=== PATIENT | female | born 1940 | race Caucasian/White ===

== ENCOUNTER → 2017-05-28 | Outpatient (REF) | payer MEDICARE ==
[2017-05-28 13:30] LABS: BASO % 0.6 % (0.0-1.0); EOS # 0.1 10^3/uL (0.0-0.50); EOS % 1.7 % (0.0-3.0); IMMATURE GRANULOCYTE % 0.4 % (0-0); LYMPH # 1.9 10^3/uL (1.5-4.5); MEAN CORPUSCULAR HGB CONC 33.8 g/dl (32.0-36.5); MEAN CORPUSCULAR VOLUME 91.8 fl (80.0-96.0); MONO # 0.5 10^3/uL (0.0-0.8); MONO % 7.6 % (0.0-5.0); NEUTROPHILS # 4.4 10^3/uL (1.8-7.7); NEUTROPHILS % 62.7 % (36.0-66.0); PLATELET COUNT, AUTOMATED 333 10^3/uL (150-450); RED CELL DISTRIBUTION WIDTH 12.5 % (11.5-14.5); WHITE BLOOD COUNT 7.1 10^3/uL (4.0-10.0)
[2017-05-28 13:31] LABS: ADD MANUAL DIFFER NO; DIFF SLIDE NUMBER 146
[2017-05-28 13:56] LABS: ALBUMIN 4.3 GM/DL (3.2-5.2); ALBUMIN/GLOBULIN RATIO 1.39 (1.00-1.93); ALKALINE PHOSPHATASE 66 U/L (45-117); ALT/SGPT 29 U/L (12-78); ANION GAP 7 MEQ/L (8-16); AST/SGOT 20 U/L (15-37); BILIRUBIN,TOTAL 0.7 MG/DL (0.2-1.0); BLOOD UREA NITROGEN 12 MG/DL (7-18); CALCIUM LEVEL 9.4 MG/DL (8.8-10.2); CARBON DIOXIDE LEVEL 30 MEQ/L (21-32); CHLORIDE LEVEL 97 MEQ/L (98-107); CHOLESTEROL LEVEL 180 MG/DL (<200); CREATININE FOR GFR 0.86 MG/DL (0.55-1.02); GLOMERULAR FILTRATION RATE > 60.0 (>39); GLUCOSE, FASTING 110 MG/DL (83-110); POTASSIUM SERUM 4.5 MEQ/L (3.5-5.1); SODIUM LEVEL 134 MEQ/L (136-145); TOTAL PROTEIN 7.4 GM/DL (6.4-8.2); TRIGLYCERIDES LEVEL 132 MG/DL (<150)
== END ==
LOC: M LABWUC 12:22
PROVIDERS: ATTEND Family Medicine
DX: I10 Essential (primary) hypertension (principal)

== ENCOUNTER 2017-10-03 14:32 | Emergency (ER) | payer MEDICARE ==
[2017-10-03] MEDS: ONDANSETRON 4MG/2ML VIAL (J2405) IV (16:41)
[2017-10-03] MEDS: MORPHINE 2 MG/ML 1ML SYRINGE (J2270) IV (16:42)
[2017-10-03] MEDS: CEPHALEXIN 500 MG CAP PO (18:30)
== END 2017-10-03 19:07 | disposition home or self-care (01) ==
LOC: M ED 14:32
DX: S61.215A Laceration without foreign body of left ring finger without damage to nail, initial encounter (principal); T14.8XXA Other injury of unspecified body region, initial encounter; W00.0XXA Fall on same level due to ice and snow, initial encounter; Y92.481 Parking lot as the place of occurrence of the external cause; I10 Essential (primary) hypertension; J44.9 Chronic obstructive pulmonary disease, unspecified; E78.9 Disorder of lipoprotein metabolism, unspecified; Z88.2 Allergy status to sulfonamides; Z79.899 Other long term (current) drug therapy; Z79.51 Long term (current) use of inhaled steroids
CPT/HCPCS: J2405

== ENCOUNTER 2019-03-18 09:28 | Emergency (ER) | payer MEDICARE, MEDICAID ==
[~2019-03-18] VITALS: Ht 165.1 cm; Wt 70.5 kg
[~2019-03-18 09:28] MED LIST: AMOX875T; CRES10TA; IBUP-1022 PO; KEFL500C17 PO; LISINOP/HCTZ; METO1TAB87; ONDA4TAB5; PROAAER10; SYMBICORT
[2019-03-18] MEDS ORDERED: LOSA50TA5 (09:39)
[2019-03-18 10:05] VITALS: BP 151/59
== END 2019-03-18 10:11 | disposition home or self-care (01) ==
LOC: M ED 09:28
DX: H11.32 Conjunctival hemorrhage, left eye (principal); K59.00 Constipation, unspecified; I10 Essential (primary) hypertension; J43.9 Emphysema, unspecified; Z79.51 Long term (current) use of inhaled steroids; Z79.899 Other long term (current) drug therapy; Z88.2 Allergy status to sulfonamides

== ENCOUNTER 2019-06-21 11:13 | Day surgery (SDC) | payer MEDICAID, MEDICARE ==
[~2019-06-21] VITALS: Ht 162.6 cm; Wt 66.7 kg
[~2019-06-21 11:13] MED LIST changes: +ASPI-264 PO; +BALANCED SALT IRRIGATION SOLUTION 500ML BAG (FOR OR EYE MACHINE) As Ordered ONE; +CEFUROXIME 1MG/0.1ML INTRACAMERAL INJ As Ordered ONE; -CRES10TA; +CRES10TA PO; +DUOVISC (0.50ML VISCOAT/0.55ML PROVISC) OPHTH KIT As Ordered ONE; +LIDOCAINE 0.75%/EPINEPHRINE 0.025% IN BSS 0.8ML SYR INTRACAMERAL--OR ONLY As Ordered ONE; +LOSA50TA5; +LOSA50TA5 PO; +METO1TAB87 PO; +OFLOXACIN 0.3 % (OCUFLOX) OPTH SOL 5ML OS ONE; +PHENYLEPHRINE 2.5% OPHTH SOL 2ML OS ONE; +POVIDONE-IODINE 5% OPHTH PREP SOL 30ML As Ordered ONE; -PROAAER10; +PROAAER10 INH; +PROPARACAINE 0.5% OPHTH SOL 15ML OS ONE; +SYMB16INH INH; +TROPICAMIDE 1% OPHTH SOLN 2ML OS ONE
[2019-06-21] MEDS ORDERED: fentaNYL 100 MCG/2 ML INJECTION (J3010) As Ordered ONE (12:41)
[2019-06-21] MEDS ORDERED: MIDAZOLAM INJ 2 MG/2 ML VIAL (J2250) As Ordered ONE (12:41)
[2019-06-21 14:49] VITALS: BP 135/61
--- NOTE | 2019-06-22 18:59 | RO ---
DATE OF PROCEDURE: 06/21/2019 PREOPERATIVE DIAGNOSIS: 1. Visually significant nuclear sclerotic cataract left eye. POSTOPERATIVE DIAGNOSIS: 1. Visually significant nuclear sclerotic cataract left eye. PROCEDURE: 1. Cataract extraction with use of phacoemulsification and placement of intraocular lens, AU00T0, 20.0 D, left eye. SURGEON: Pino Dietrich DO TRACK SUPERINTENDENT: None. ANESTHESIA: Local with monitored anesthesia care (MAC). COMPLICATIONS: None. POSTOPERATIVE CONDITION: Stable. INDICATIONS FOR SURGERY: 1. Blurred vision affecting patients activities of daily living. DESCRIPTION OF PROCEDURE: The patient was seen in the preoperative area and properly identified. The correct operative eye was identified and marked. The patient received topical anesthetic, antibiotics, and topical dilating drops. The patient was then transferred to the operating room. The correct side was re-identified, and a time-out was performed. The eye was prepped and draped in a sterile fashion. The eyelids were isolated with Tegaderm tape, and the lids were held open with an adjustable speculum. A 1.0 mm paracentesis incision was made. Intraocular preservative-free Shugarcaine was then injected into the anterior chamber. Viscoelastic was then injected into the anterior chamber through the paracentesis. Using a 2.4 mm sharp-tipped keratome, the anterior chamber was entered via a temporal clear cornea incision. A continuous curvilinear capsulorrhexis was created with Utrata forceps. Hydrodissection was performed with balanced salt solution (BSS) on a blunt cannula until the nucleus was able to rotate freely. The crystalline lens was phacoemulsified and aspirated. Irrigation/aspiration was used to remove the cortical material. Cohesive viscoelastic was placed into the capsular bag to deepen it. The implant was placed into the capsular bag and allowed to unfold. Placement was confirmed by visualizing the anterior capsulorrhexis. Irrigation/aspiration was used to remove the viscoelastic. The clear corneal incision was hydrated with BSS on a blunt cannula. The lens was well positioned. The incisions were then tested for leaks and found to be negative. The eye was then palpated for appropriate pressure and adjusted accordingly with BSS. The eyelid speculum was then carefully removed. A shield was placed over the eye. The patient tolerated the procedure well and was discharged to the recovery unit in a stable condition.
== END 2019-06-21 14:49 | disposition home or self-care (01) ==
LOC: M SDC 11:13
PROVIDERS: ATTEND Ophthalmology
DX: H25.12 Age-related nuclear cataract, left eye (principal); I10 Essential (primary) hypertension; J44.9 Chronic obstructive pulmonary disease, unspecified; Z88.2 Allergy status to sulfonamides; Z79.891 Long term (current) use of opiate analgesic; Z79.899 Other long term (current) drug therapy; Z79.82 Long term (current) use of aspirin
CPT/HCPCS: 66984; J2250; J3010; V2632

== ENCOUNTER 2019-07-05 07:58 | Day surgery (SDC) | payer MEDICAID, MEDICARE ==
[~2019-07-05] VITALS: Ht 165.1 cm; Wt 67.1 kg
[~2019-07-05 07:58] MED LIST changes: +OFLOXACIN 0.3 % (OCUFLOX) OPTH SOL 5ML OD ONE; -OFLOXACIN 0.3 % (OCUFLOX) OPTH SOL 5ML OS ONE; +PHENYLEPHRINE 2.5% OPHTH SOL 2ML OD ONE; -PHENYLEPHRINE 2.5% OPHTH SOL 2ML OS ONE; +PROPARACAINE 0.5% OPHTH SOL 15ML OD ONE; -PROPARACAINE 0.5% OPHTH SOL 15ML OS ONE; +TROPICAMIDE 1% OPHTH SOLN 2ML OD ONE; -TROPICAMIDE 1% OPHTH SOLN 2ML OS ONE
[2019-07-05] MEDS ORDERED: MIDAZOLAM INJ 2 MG/2 ML VIAL (J2250) As Ordered ONE (11:11)
[2019-07-05] MEDS ORDERED: fentaNYL 100 MCG/2 ML INJECTION (J3010) As Ordered ONE (11:12)
[2019-07-05 12:30] VITALS: BP 140/65
--- NOTE | 2019-07-06 10:04 | RO ---
DATE OF PROCEDURE: 07/05/2019 PREOPERATIVE DIAGNOSIS: 1. Visually significant nuclear sclerotic cataract right eye. POSTOPERATIVE DIAGNOSIS: 1. Visually significant nuclear sclerotic cataract right eye. PROCEDURE: 1. Cataract extraction with use of phacoemulsification and placement of intraocular lens, AU00T0, 19.0 D, right eye. SURGEON: Pino Dietrich DO AIRPLANE PILOT PHOTOGRAMMETRY: None. ANESTHESIA: Local with monitored anesthesia care (MAC). COMPLICATIONS: None. POSTOPERATIVE CONDITION: Stable. INDICATIONS FOR SURGERY: 1. Blurred vision affecting patients activities of daily living. DESCRIPTION OF PROCEDURE: The patient was seen in the preoperative area and properly identified. The correct operative eye was identified and marked. The patient received topical anesthetic, antibiotics, and topical dilating drops. The patient was then transferred to the operating room. The correct side was re-identified, and a time-out was performed. The eye was prepped and draped in a sterile fashion. The eyelids were isolated with Tegaderm tape, and the lids were held open with an adjustable speculum. A 1.0 mm paracentesis incision was made. Intraocular preservative-free Shugarcaine was then injected into the anterior chamber. Viscoelastic was then injected into the anterior chamber through the paracentesis. Using a 2.4 mm sharp-tipped keratome, the anterior chamber was entered via a temporal clear cornea incision. A continuous curvilinear capsulorrhexis was created with Utrata forceps. Hydrodissection was performed with balanced salt solution (BSS) on a blunt cannula until the nucleus was able to rotate freely. The crystalline lens was phacoemulsified and aspirated. Irrigation/aspiration was used to remove the cortical material. Cohesive viscoelastic was placed into the capsular bag to deepen it. The implant was placed into the capsular bag and allowed to unfold. Placement was confirmed by visualizing the anterior capsulorrhexis. Irrigation/aspiration was used to remove the viscoelastic. The clear corneal incision was hydrated with BSS on a blunt cannula. The lens was well positioned. The incisions were then tested for leaks and found to be negative. The eye was then palpated for appropriate pressure and adjusted accordingly with BSS. The eyelid speculum was then carefully removed. A shield was placed over the eye. The patient tolerated the procedure well and was discharged to the recovery unit in a stable condition.
== END 2019-07-05 12:42 | disposition home or self-care (01) ==
LOC: M SDC 07:58
PROVIDERS: ATTEND Ophthalmology
DX: H25.11 Age-related nuclear cataract, right eye (principal); I10 Essential (primary) hypertension; M19.90 Unspecified osteoarthritis, unspecified site; J44.9 Chronic obstructive pulmonary disease, unspecified; Z87.891 Personal history of nicotine dependence; Z88.2 Allergy status to sulfonamides; Z79.899 Other long term (current) drug therapy; Z79.82 Long term (current) use of aspirin; Z79.51 Long term (current) use of inhaled steroids
CPT/HCPCS: 66984; J2250; J3010; V2632

== ENCOUNTER 2021-06-18 10:43 | Emergency (ER) | payer MEDICARE, MEDICAID ==
[~2021-06-18] VITALS: Ht 160 cm; Wt 68.1 kg
[~2021-06-18 10:43] MED LIST changes: -BALANCED SALT IRRIGATION SOLUTION 500ML BAG (FOR OR EYE MACHINE) As Ordered ONE; -CEFUROXIME 1MG/0.1ML INTRACAMERAL INJ As Ordered ONE; -DUOVISC (0.50ML VISCOAT/0.55ML PROVISC) OPHTH KIT As Ordered ONE; -LIDOCAINE 0.75%/EPINEPHRINE 0.025% IN BSS 0.8ML SYR INTRACAMERAL--OR ONLY As Ordered ONE; -OFLOXACIN 0.3 % (OCUFLOX) OPTH SOL 5ML OD ONE; +ONDA-83; -ONDA4TAB5; -PHENYLEPHRINE 2.5% OPHTH SOL 2ML OD ONE; -POVIDONE-IODINE 5% OPHTH PREP SOL 30ML As Ordered ONE; -PROPARACAINE 0.5% OPHTH SOL 15ML OD ONE; -TROPICAMIDE 1% OPHTH SOLN 2ML OD ONE
--- OUTSIDE RECORDS SUMMARY | 2021-06-18 10:51 | CCD ---
Author Author [facility] Organization [facility] Address Unknown Phone Unavailable Care Team Providers Care Founder Ceo & President Name Role Phone CHICHO, Reggie SENIOR PA Unavailable Unavailable LETTIERE, Reggie SENIOR PA Unavailable Unavailable LETTIERE, Reggie SENIOR PA Unavailable Unavailable LETTIERE, Reggie SENIOR PA Unavailable Unavailable LETTIERE, Reggie SENIOR PA Unavailable Unavailable LETTIERE, Reggie SENIOR PA Unavailable Unavailable LETTIERE, Reggie SENIOR PA Unavailable Unavailable LETTIERE, Reggie SENIOR PA Unavailable Unavailable LETTIERE, Reggie SENIOR PA Unavailable Unavailable LETTIERE, Reggie SENIOR PA Unavailable Unavailable LETTIERE, Reggie SENIOR PA Unavailable Unavailable LETTIERE, Reggie SENIOR PA Unavailable Unavailable LETTIERE, Reggie SENIOR PA Unavailable Unavailable LETTIERE, Reggie SENIOR PA Unavailable Unavailable LETTIERE, Reggie SENIOR PA Unavailable Unavailable LETTIERE, A PARRISH PA Unavailable Unavailable LETTIERE, A PARRISH PA Unavailable Unavailable LETTIERE, A PARRISH PA Unavailable Unavailable LETTIERE, A PARRISH PA Unavailable Unavailable LETTIERE, A PARRISH PA Unavailable Unavailable LETTIERE, A PARRISH PA Unavailable Unavailable LETTIERE, Reggie SENIOR PA Unavailable Unavailable LETTIERE, A PARRISH PA Unavailable Unavailable LETTIERE, A PARRISH PA Unavailable Unavailable LETTIERE, A PARRISH PA Unavailable Unavailable LETTIERE, A PARRISH PA Unavailable Unavailable LETTIERE, A PARRISH PA Unavailable Unavailable LETTIERE, A PARRISH PA Unavailable Unavailable LETTIERE, A PARRISH PA Unavailable Unavailable LETTIERE, A PARRISH PA Unavailable Unavailable LETTIERE, A PARRISH PA Unavailable Unavailable IJ, TOM PA Unavailable Unavailable JI, TOM PA Unavailable Unavailable JI, TOM PA Unavailable Unavailable JI, TOM PA Unavailable Unavailable JI, TOM PA Unavailable Unavailable JI, TOM PA Unavailable Unavailable JI, TOM PA Unavailable Unavailable JI, TOM PA Unavailable Unavailable JI, TOM PA Unavailable Unavailable JI, TOM PA Unavailable Unavailable JI, TOM PA Unavailable Unavailable JI, TOM PA Unavailable Unavailable JI, TOM PA Unavailable Unavailable JI, TOM PA Unavailable Unavailable JI, TOM PA Unavailable Unavailable JI, TOM PA Unavailable Unavailable JI, TOM PA Unavailable Unavailable JI, TOM PA Unavailable Unavailable JI, TOM PA Unavailable Unavailable JI, TOM PA Unavailable Unavailable JI, TOM PA Unavailable Unavailable JI, TOM PA Unavailable Unavailable JI, TOM PA Unavailable Unavailable JI, TOM PA Unavailable Unavailable JI, TOM PA Unavailable Unavailable JI, TOM PA Unavailable Unavailable JI, TOM PA Unavailable Unavailable JI, TOM PA Unavailable Unavailable JI, TOM PA Unavailable Unavailable JI, TOM PA Unavailable Unavailable JI, TOM PA Unavailable Unavailable JI, TOM PA Unavailable Unavailable JI, TOM PA Unavailable Unavailable JI, TOM PA Unavailable Unavailable JI, TOM PA Unavailable Unavailable JI, TOM PA Unavailable Unavailable Re-disclosure Warning The records that you are about to access may contain information from federally-assisted alcohol or drug abuse programs. If such information is present, then the following federally mandated warning applies: This information has been disclosed to you from records protected by federal confidentiality rules (42 CFR part 2). The federal rules prohibit you from making any further disclosure of this information unless further disclosure is expressly permitted by the written consent of the person to whom it pertains or as otherwise permitted by 42 CFR part 2. A general authorization for the release of medical or other information is NOT sufficient for this purpose. The Federal rules restrict any use of the information to criminally investigate or prosecute any alcohol or drug abuse patient.The records that you are about to access may contain highly sensitive health information, the redisclosure of which is protected by Article 27-F of the [facility] Public Health law. If you continue you may have access to information: Regarding HIV / AIDS; Provided by facilities licensed or operated by the [facility] Office of Mental Health; or Provided by the [facility] Office for People With Developmental Disabilities. If such information is present, then the following [facility] mandated warning applies: This information has been disclosed to you from confidential records which are protected by state law. State law prohibits you from making any further disclosure of this information without the specific written consent of the person to whom it pertains, or as otherwise permitted by law. Any unauthorized further disclosure in violation of state law may result in a fine or nursing home sentence or both. A general authorization for the release of medical or other information is NOT sufficient authorization for further disc losure. Family History Family Member Name Family Member Gender Family Member Status Date o f Status Description Data Source(s) Unknown Male Problem [facility] ([facility]) Unknown Unknown Problem [facility] ([facility]) mother Encounters Encounter Providers Location Date Indications Data Source(s ) Outpatient Attender: PARRISH Amador Prim vannesa 06/10/2021 09:05:00 AM EDT [facility] ([facility]) Outpatient Attender: TOM Amador Prima ry 04/05/2021 10:05:00 AM EDT [facility] ([facility]) Immunizations Vaccine Date Status Description Data Source(s) COVID-19 VACCINE Moderna 11/07/2020 12:00:00 AM EDT completed [facility] Vaccine Series Complete: YESThis Data wa s Submitted to [facility] Via [employer]. COVID-19 VACCINE, MRNA-1273, LNP-S (MODERNA)/PF 11/07/2020 1 2:00:00 AM EDT completed [facility] COVID-19 VACCINE Moderna 10/10/2020 12:00:00 AM EST completed [facility] Vaccine Series Complete: NOThis Data was Submitted to [facility] [employer]. COVID-19 VACCINE, MRNA-1273, LNP-S (MODERNA)/PF 10/10/2020 1 2:00:00 AM EST completed [facility] Medications Medication Brand Name Start Date Product Form Dose Route Admi nistrative Instructions Pharmacy Instructions Status Indications Reaction Description Data Source(s) Triamcinolone Acetonide 1 MG/ML Topical Cream Triamcinolone Acetonide 06/10/2021 12:00:00 AM EDT active M EDENT ([facility]) Triamcinolone Acetonide 1 MG/ML Topical Cream 0.1 % TRIAMCIN OLONE ACETONIDE 06/10/2021 12:00:00 AM EDT cream 45 APPLY TO AFFECTED AREA(S) FOR 14 DAYS TO POSTERIOR NECK. AVOID CREAM TO THE FACE APPLY TO AFFECTED AREA(S) FOR 14 DAYS TO POSTERIOR NECK. AVOID CREAM TO THE FACE SOLD: 06/10/2021 [facility] 10 mg 06/09/2021 12:00:00 AM EDT tablet 90 TAKE ONE TABLET BY MOUTH EVERY DAY TAKE ONE TABLET BY MOUTH EVERY DAY SOLD: 06/10/2021 [facility] 25 mg 06/09/2021 12:00:00 AM EDT tablet 180 TAKE ONE TABLET BY MOUTH TWICE A DAY TAKE ONE TABLET BY MOUTH TWICE A DAY SOLD: 06/10/2021 [facility] 160-4.5 mcg/actuation 05/24/2021 12:00:00 AM EDT HFA aerosol inhaler 10 INHALE TWO PUFFS BY MOUTH TWICE A DAY INHALE TWO PUFFS BY MOUTH TWICE A DAY SOLD: 05/24/2021 [facility] valacyclovir 1000 MG Oral Tablet VALACYCLOVIR HCL 05/04/2021 12: 00:00 AM EDT tablet 21 TAKE ONE TABLET BY MOUTH THREE T IMES A DAY FOR 7 DAYS TAKE ONE TABLET BY MOUTH THREE TIMES A DAY FOR 7 DAYS SOLD: 05/04/2021 [facility] Hydrocortisone 10 MG/ML / Neomycin 3.5 M G/ML / Polymyxin B [id number] UNT/ML Otic Suspension 3.5-10,000-1 mg/mL-unit/mL-% NEOMYCIN/POLYMYXIN B/HYDROCORT 05/01/2021 12:00:00 AM EDT drops,suspension 10 INST ILL 4 DROPS INTO AFFECTED EAR TWO TIMES A DAY FOR 7 DAYS INSTILL 4 DROPS INTO AFFECTED EAR TWO TI MES A DAY FOR 7 DAYS SOLD: 05/01/2021 [facility] buspirone hydrochloride 10 MG Oral Tablet BUSPIRONE HCL 04/09/2021 12:00:00 AM EDT tablet 180 TAKE ONE TABLET BY MOUTH TWI CE A DAY TAKE ONE TABLET BY MOUTH TWICE A DAY SOLD: 04/10/2021 [facility] Hydrochlorothiazide 12.5 MG / Losartan Potassium 50 MG Oral Tablet 50-12.5 mg LOSARTAN/HYDROCHLOROTHIAZIDE 04/09/2021 12:00:00 AM EDT tablet 90 TAKE ONE TABLET BY MOUTH EVERY DAY TAKE ONE TABLET BY MOUTH EVERY DAY SOLD: 04/10/2021 [facility] 160-4.5 mcg/actuation 03/16/2021 12:00:00 AM EDT HFA aerosol inhaler 10 INHALE TWO PUFFS BY MOUTH TWICE A DAY INHALE TWO PUFFS BY MOUTH TWICE A DAY SOLD: 04/09/2021 [facility] 160-4.5 mcg/actuation 03/16/2021 12:00:00 AM EDT HFA aerosol inhaler 10 INHALE TWO PUFFS BY MOUTH TWICE A DAY INHALE TWO PUFFS BY MOUTH TWICE A DAY SOLD: 03/16/2021 [facility] 160-4.5 mcg/actuation 01/23/2021 12:00:00 AM EDT HFA aerosol inhaler 10 INHALE TWO PUFFS BY MOUTH TWICE A DAY INHALE TWO PUFFS BY MOUTH TWICE A DAY SOLD: 02/18/2021 [facility] 160-4.5 mcg/actuation 01/23/2021 12:00:00 AM EDT HFA aerosol inhaler 10 INHALE TWO PUFFS BY MOUTH TWICE A DAY INHALE TWO PUFFS BY MOUTH TWICE A DAY SOLD: 01/23/2021 [facility] 25 mg 12/18/2020 12:00:00 AM EDT tablet 180 TAKE ONE TABLET BY MOUTH TWICE A DAY TAKE ONE TABLET BY MOUTH TWICE A DAY SOLD: 03/16/2021 [facility] 160-4.5 mcg/actuation 12/05/2020 12:00:00 AM EDT HFA aerosol inhaler 10 INHALE TWO PUFFS BY MOUTH TWICE A DAY INHALE TWO PUFFS BY MOUTH TWICE A DAY SOLD: 12/30/2020 [facility] 10 mg 12/05/2020 12:00:00 AM EDT tablet 90 TAKE ONE TABLET BY MOUTH EVERY DAY TAKE ONE TABLET BY MOUTH EVERY DAY SOLD: 03/07/2021 [facility] 160-4.5 mcg/actuation 12/05/2020 12:00:00 AM EDT HFA aerosol inhaler 10 INHALE TWO PUFFS BY MOUTH TWICE A DAY INHALE TWO PUFFS BY MOUTH TWICE A DAY SOLD: 12/06/2020 [facility] 10 mg 12/05/2020 12:00:00 AM EDT tablet 90 TAKE ONE TABLET BY MOUTH EVERY DAY TAKE ONE TABLET BY MOUTH EVERY DAY SOLD: 12/06/2020 [facility] 160-4.5 mcg/actuation 10/18/2020 12:00:00 AM EST HFA aerosol inhaler 10 INHALE 2 PUFFS BY MOUTH TWO TIMES A DAY INHALE 2 PUFFS BY MOUTH TWO TIMES A DAY SOLD: 11/10/2020 [facility] 160-4.5 mcg/actuation 10/18/2020 12:00:00 AM EST HFA aerosol inhaler 10 INHALE 2 PUFFS BY MOUTH TWO TIMES A DAY INHALE 2 PUFFS BY MOUTH TWO TIMES A DAY SOLD: 10/18/2020 [facility] Hydrochlorothiazide 12.5 MG / Losartan Potassium 50 MG Oral Tablet 50-12.5 mg LOSARTAN POTASSIUM/HYDROCHLOROTHIAZIDE 10/15/2020 12:00:00 AM EST tablet 9 0 TAKE ONE TABLET BY MOUTH EVERY DAY TAKE ONE TABLET BY MOUTH EVERY DAY SOLD: 10/15/2020 [facility] buspirone hydrochloride 10 MG Oral Tablet BUSPIRONE HCL 10/15/2020 12:00:00 AM EST tablet 180 TAKE ONE TABLET BY MOUTH TWI CE A DAY TAKE ONE TABLET BY MOUTH TWICE A DAY SOLD: 10/15/2020 [facility] Hydrochlorothiazide 12.5 MG / Losartan Potassium 50 MG Oral Tablet 50-12.5 mg LOSARTAN/HYDROCHLOROTHIAZIDE 10/15/2020 12:00:00 AM EST tablet 90 TAKE ONE TABLET BY MOUTH EVERY DAY TAKE ONE TABLET BY MOUTH EVERY DAY SOLD: 01/13/2021 [facility] buspirone hydrochloride 10 MG Oral Tablet BUSPIRONE HCL 10/15/2020 12:00:00 AM EST tablet 180 TAKE ONE TABLET BY MOUTH TWI CE A DAY TAKE ONE TABLET BY MOUTH TWICE A DAY SOLD: 01/13/2021 [facility] 160-4.5 mcg/actuation 08/25/2020 12:00:00 AM EST HFA aerosol inhaler 10 INHALE TWO PUFFS BY MOUTH TWICE A DAY INHALE TWO PUFFS BY MOUTH TWICE A DAY SOLD: 08/31/2020 [facility] 160-4.5 mcg/actuation 08/25/2020 12:00:00 AM EST HFA aerosol inhaler 10 INHALE TWO PUFFS BY MOUTH TWICE A DAY INHALE TWO PUFFS BY MOUTH TWICE A DAY SOLD: 09/25/2020 [facility] 160-4.5 mcg/actuation 08/01/2020 12:00:00 AM EST HFA aerosol inhaler 10 INHALE TWO PUFFS BY MOUTH TWICE A DAY INHALE TWO PUFFS BY MOUTH TWICE A DAY SOLD: 05/02/2021 [facility] 160-4.5 mcg/actuation 08/01/2020 12:00:00 AM EST HFA aerosol inhaler 10 INHALE TWO PUFFS BY MOUTH TWICE A DAY INHALE TWO PUFFS BY MOUTH TWICE A DAY SOLD: 08/02/2020 [facility] buspirone hydrochloride 10 MG Oral Tablet BUSPIRONE HCL 07/10/2020 12:00:00 AM EST tablet 60 TAKE ONE TABLET BY MOUTH TWI CE A DAY TAKE ONE TABLET BY MOUTH TWICE A DAY SOLD: 08/12/2020 [facility] buspirone hydrochloride 10 MG Oral Tablet BUSPIRONE HCL 07/10/2020 12:00:00 AM EST tablet 60 TAKE ONE TABLET BY MOUTH TWI CE A DAY TAKE ONE TABLET BY MOUTH TWICE A DAY SOLD: 07/10/2020 [facility] buspirone hydrochloride 10 MG Oral Tablet BUSPIRONE HCL 07/10/2020 12:00:00 AM EST tablet 60 TAKE ONE TABLET BY MOUTH TWI CE A DAY TAKE ONE TABLET BY MOUTH TWICE A DAY SOLD: 09/14/2020 [facility] 25 mg 06/20/2020 12:00:00 AM EDT tablet 180 TAKE ONE TABLET BY MOUTH TWICE A DAY TAKE ONE TABLET BY MOUTH TWICE A DAY SOLD: 06/21/2020 [facility] 25 mg 06/20/2020 12:00:00 AM EDT tablet 180 TAKE ONE TABLET BY MOUTH TWICE A DAY TAKE ONE TABLET BY MOUTH TWICE A DAY SOLD: 09/19/2020 [facility] 160-4.5 mcg/actuation 05/16/2020 12:00:00 AM EDT HFA aerosol inhaler 10 INHALE TWO PUFFS BY MOUTH TWICE A DAY INHALE TWO PUFFS BY MOUTH TWICE A DAY SOLD: 05/21/2020 [facility] 10 mg 05/05/2020 12:00:00 AM EDT tablet 30 TAKE ONE TABLET BY MOUTH EVERY DAY TAKE ONE TABLET BY MOUTH EVERY DAY SOLD: 07/10/2020 [facility] 90 mcg/actuation 05/05/2020 12:00:00 AM EDT HFA aerosol inha ler 8 INHALE TWO PUFFS BY MOUTH EVERY 6 HOURS NEEDED INHALE TWO PUFFS BY MOUTH EVERY 6 HOURS NEEDED SOLD: 05/08/2020 [facility] 10 mg 05/05/2020 12:00:00 AM EDT tablet 30 TAKE ONE TABLET BY MOUTH EVERY DAY TAKE ONE TABLET BY MOUTH EVERY DAY SOLD: 06/12/2020 [facility] 10 mg 05/05/2020 12:00:00 AM EDT tablet 30 TAKE ONE TABLET BY MOUTH EVERY DAY TAKE ONE TABLET BY MOUTH EVERY DAY SOLD: 08/12/2020 [facility] 10 mg 05/05/2020 12:00:00 AM EDT tablet 30 TAKE ONE TABLET BY MOUTH EVERY DAY TAKE ONE TABLET BY MOUTH EVERY DAY SOLD: 10/10/2020 [facility] 10 mg 05/05/2020 12:00:00 AM EDT tablet 30 TAKE ONE TABLET BY MOUTH EVERY DAY TAKE ONE TABLET BY MOUTH EVERY DAY SOLD: 09/11/2020 [facility] 10 mg 05/05/2020 12:00:00 AM EDT tablet 30 TAKE ONE TABLET BY MOUTH EVERY DAY TAKE ONE TABLET BY MOUTH EVERY DAY SOLD: 05/08/2020 [facility] Hydrochlorothiazide 12.5 MG / Losartan Potassium 50 MG Oral Tablet 50-12.5 mg LOSARTAN POTASSIUM/HYDROCHLOROTHIAZIDE 04/15/2020 12:00:00 AM EDT tablet 3 0 TAKE ONE TABLET BY MOUTH EVERY DAY TAKE ONE TABLET BY MOUTH EVERY DAY SOLD: 09/12/2020 [facility] Hydrochlorothiazide 12.5 MG / Losartan Potassium 50 MG Oral Tablet 50-12.5 mg LOSARTAN POTASSIUM/HYDROCHLOROTHIAZIDE 04/15/2020 12:00:00 AM EDT tablet 3 0 TAKE ONE TABLET BY MOUTH EVERY DAY TAKE ONE TABLET BY MOUTH EVERY DAY SOLD: 08/18/2020 [facility] Hydrochlorothiazide 12.5 MG / Losartan Potassium 50 MG Oral Tablet 50-12.5 mg LOSARTAN POTASSIUM/HYDROCHLOROTHIAZIDE 04/15/2020 12:00:00 AM EDT tablet 3 0 TAKE ONE TABLET BY MOUTH EVERY DAY TAKE ONE TABLET BY MOUTH EVERY DAY SOLD: 04/19/2020 [facility] buspirone hydrochloride 10 MG Oral Tablet BUSPIRONE HCL 03/31/2020 12:00:00 AM EDT tablet 60 TAKE ONE TABLET BY MOUTH TWI CE A DAY TAKE ONE TABLET BY MOUTH TWICE A DAY SOLD: 06/11/2020 [facility] buspirone hydrochloride 10 MG Oral Tablet BUSPIRONE HCL 03/31/2020 12:00:00 AM EDT tablet 60 TAKE ONE TABLET BY MOUTH TWI CE A DAY TAKE ONE TABLET BY MOUTH TWICE A DAY SOLD: 05/08/2020 [facility] 160-4.5 mcg/actuation 02/07/2020 12:00:00 AM EDT HFA aerosol inhaler 10 INHALE TWO PUFFS BY MOUTH TWICE A DAY INHALE TWO PUFFS BY MOUTH TWICE A DAY SOLD: 06/11/2020 [facility] 160-4.5 mcg/actuation 02/07/2020 12:00:00 AM EDT HFA aerosol inhaler 10 INHALE TWO PUFFS BY MOUTH TWICE A DAY INHALE TWO PUFFS BY MOUTH TWICE A DAY SOLD: 07/10/2020 [facility] 160-4.5 mcg/actuation 02/07/2020 12:00:00 AM EDT HFA aerosol inhaler 10 INHALE TWO PUFFS BY MOUTH TWICE A DAY INHALE TWO PUFFS BY MOUTH TWICE A DAY SOLD: 04/24/2020 [facility] Hydrochlorothiazide 12.5 MG / Losartan Potassium 50 MG Oral Tablet 50-12.5 mg LOSARTAN POTASSIUM/HYDROCHLOROTHIAZIDE 12/17/2019 12:00:00 AM EDT tablet 3 0 TAKE 1 TABLET BY MOUTH ONCE DAILY TAKE 1 TABLET BY MOUTH ONCE DAILY SOLD: 05/21/2020 [facility] 10 mg 12/17/2019 12:00:00 AM EDT tablet 30 TAKE ONE TABLET BY MOUTH EVERY DAY TAKE ONE TABLET BY MOUTH EVERY DAY SOLD: 11/09/2020 [facility] Hydrochlorothiazide 12.5 MG / Losartan Potassium 50 MG Oral Tablet 50-12.5 mg LOSARTAN POTASSIUM/HYDROCHLOROTHIAZIDE 12/17/2019 12:00:00 AM EDT tablet 3 0 TAKE 1 TABLET BY MOUTH ONCE DAILY TAKE 1 TABLET BY MOUTH ONCE DAILY SOLD: 06/20/2020 [facility] Hydrochlorothiazide 12.5 MG / Losartan Potassium 50 MG Oral Tablet 50-12.5 mg LOSARTAN POTASSIUM/HYDROCHLOROTHIAZIDE 12/17/2019 12:00:00 AM EDT tablet 3 0 TAKE 1 TABLET BY MOUTH ONCE DAILY TAKE 1 TABLET BY MOUTH ONCE DAILY SOLD: 07/18/2020 [facility] Insurance Providers Payer name Policy type / Coverage type Policy ID Covered constitution party ID Covered constitution party's relationship to linn Policy [place] Plan Information MEDICARE [id number] SP [id number] A MEDICARE [id number] SP [id number] [place] [id number] Self 1 [id number] [place] Medicare Primary [id number] Self 1 [id number] [place] Medicare Primary [id number] Self 1 [id number] [place] Medicare Primary [id number] Self 1 [id number] [place] Medicare Primary [id number] Self 1 [id number] [place] Medicare Primary [id number] Self 1 [id number] [place] Medicare Primary [id number] Self 1 [id number] Medicare [place] Medicare Primary [id number] Self 1 [id number] Medicare [place] Medicare Primary [id number] Self 1 [id number] Medicare Part B of [facility] Other 0 [id number] Self 0 Medicare Natl Gov't Servi Medicare Primary [id number] Self [id number] Medicare Natl Gov't Servi Medicare Primary [id number] Self [id number] MEDICARE P [id number] S [id number] A Medicare Part B of [facility] Other 0 [id number] Self 0 Medicare Part B of [facility] Other 0 [id number] Self 0 MEDICARE C [id number] S [id number] A MEDICAID [id number] SP [id number] Medicare Part B of [facility] Other 0 [id number] Self 0 Medicare Part B of [facility] Other 0 [id number] Self 0 BCBS OF [facility] [id number] SP [id number] Medicare Part B of [facility] Other 0 [id number] Self 0 MEDICARE C [id number] S [id number] Problems, Conditions, and Diagnoses No Information Surgeries/Procedures Procedure Description Date Indications Data Source(s) OFFICE OUTPATIENT VISIT 15 MINUTES 06/10/2021 12:00:00 AM EDT [facility] ([facility], [facility]) OFFICE OUTPATIENT NEW 30 MINUTES 04/05/2021 12:00:00 A M EDT [facility] ([facility], [facility]) Results No Information Social History No Information Vital Signs ID Date Data Source UNK Name Value Range Interpretation Code Description Data Source(s) Systolic blood pressure 156 mm[Hg] 156 mm[Hg] M EDENT ([facility], [facility]) Diastolic blood pressure 78 mm[Hg] 78 mm[Hg] [facility] ([facility]) Heart rate 62 /min 62 /min [facility] ([facility]) Respiratory rate 20 /min 20 /min [facility] ( [facility], [facility]) Oxygen saturation in Arterial blood by Pulse oximetry 96 % 96 % [facility]) Body temperature 98.1 [degF] 98.1 [degF] [facility]) Body weight 148.00 [lb_av] 148.00 [lb_av] MEDEN T ([facility], [facility]) Body height 65 [in_i] 65 [in_i] [facility]) 5'5" Body mass index (BMI) [Ratio] 24.6 kg/m2 24.6 k g/m2 [facility] ([facility], [facility]) Systolic blood pressure 130 mm[Hg] 130 mm[Hg] ED[facility] ([facility], [facility]) Diastolic blood pressure 76 mm[Hg] 76 mm[Hg] [facility]) Heart rate 69 /min 69 /min [facility] ([facility], [facility]) Respiratory rate 18 /min 18 /min [facility] ( [facility]) Oxygen saturation in Arterial blood by Pulse oximetry 98 % 98 % [facility]) Body temperature 97.8 [degF] 97.8 [degF] [facility], [facility]) Body weight 149.00 [lb_av] 149.00 [lb_av] MEDEN T ([facility], [facility]) Body height 65 [in_i] 65 [in_i] [facility]) 5'5" Body mass index (BMI) [Ratio] 24.8 kg/m2 24.8 k g/m2 [facility])
--- OUTSIDE RECORDS SUMMARY | 2021-06-18 10:51 | CCD | Continuity of Care Document ---
Author Author Danika VALENTINO PA Organization Unknown Address [address] [place] [address] [place] [address] Phone [phone] Care Team Providers Care Tax Services Specialist Name Role Phone Simba Priest MD AUTM [phone] [place] [facility] AUTM [phone] Problems Description No Information Available Social History Type Date Description Comments Sex Unknown ETOH Use Denies alcohol use Tobacco Use Start: Unknown End: Unknown Patient is a former smoker 2007 Tobacco Use Start: Unknown The Patient Has Never Vaped Smoking Status Reviewed: 06/10/21 The Patient Has Never Vaped Allergies and adverse reactions Active Allergies Criticality Reaction | Severity Comments Date Sulfa Unable to assess criticality 08/16/2017 Inactive Allergies NKDA Unable to assess criticality 09/04/2012 Medications Active Medications SIG Qnty Indications Ordering Provide r Date Triamcinolone Acetonide 0.1% Cream aaa twice a day for 14 days to posterior neck. avoid cream to the face 45gm L30.9 Mina Mujica JR., M.D. 06/10/2021 Proair HFA 108(90Base) mcg/Act Aer osol 2 puff every 4 hours as needed sob/wheezing 1units J20.9 Mina Mujica JR., M.D. 10/01/2017 Symbicort 160-4.5mcg/Act Aerosol 1 puff bid Unknown Lopressor 50mg Tablets qd Unknown Crestor 10mg Tablets take one (1) tab every pm Unknown Lisinopril-Hydrochlorothiazide 10-12.5mg Tablets 1 by mouth every day Unknown [address] 2 at 1am Unknown Losartan Potassium/Hydrochlorothiazide 50mg Unknown Benadryl Extra Strength 2-0.1% Cre am since last night apply sparingly every 4-6 hours Unkno wn Immunizations Description No Information Available Vital Signs Date Vital Result Comment 06/10/2021 10:15am BP Systolic 156 mmHg BP Diastolic 78 mmHg Heart Rate 62 /min Respiratory Rate 20 /min O2 % BldC Oximetry 96 % Body Temperature 98.1 F Weight 148.00 lb Height 65 inches 5'5" BMI (Body Mass Index) 24.6 kg/m2 Pain Level 2 04/05/2021 10:16am BP Systolic 130 mmHg BP Diastolic 76 mmHg Heart Rate 69 /min Respiratory Rate 18 /min O2 % BldC Oximetry 98 % Body Temperature 97.8 F Weight 149.00 lb Height 65 inches 5'5" BMI (Body Mass Index) 24.8 kg/m2 Pain Level 0 Results Description No Information Available Procedures Date Code Description Status 06/10/2021 88075 Office/Outpatient Established Lo w MDM 20-29 Min Completed 04/05/2021 40611 Office/Outpatient New Low MDM 30 -44 Minutes Completed Medical Devices Description No Information Available Encounters Type Date Location Provider Dx Diagnosis Office Visit 06/10/2021 9:05a Main Office ANNI Cabello L30 .9 Dermatitis, unspecified Office Visit 04/05/2021 10:05a Main Office Mesfin Dinero, P.A. H9 2.01 Otalgia, right ear Assessments Date Code Description Provider 06/10/2021 L30.9 Dermatitis, unspecified ANNI Cabello 04/05/2021 H92.01 Otalgia, right ear Mesfin rhodes, P.A. Plan of Treatment 06/10/2021 - ANNI Cabello* L30.9 Dermatitis, unspecified* New Medication:* Triamcinolone Acetonide 0.1 % - aaa twice a day for 14 days to posterior neck. avoid cream to the face Functional Status Description No Information Available Mental Status Description No Information Available Referrals Refer to Reason for Referral Status Appt Date Zahra Mcleod MD hearing evaluation, right sided hearing issues. Closed 04/10/2021 [address] [place] [address] [phone]
--- OUTSIDE RECORDS SUMMARY | 2021-06-18 10:51 | CCD | Continuity of Care Document ---
Author Author Danika WORKMAN P.A. Organization Unknown Address [address] [place] [address] Phone [phone] Care Team Providers Care Pot Feeder Name Role Phone Simba Priest MD AUTM [phone] Problems Description No Information Available Social History Type Date Description Comments Sex Unknown ETOH Use Denies alcohol use Tobacco Use Start: Unknown End: Unknown Patient is a former smoker 2007 Tobacco Use Start: Unknown The Patient Has Never Vaped Smoking Status Reviewed: 04/05/21 The Patient Has Never Vaped Allergies, Adverse Reactions, Alerts Active Allergies Reaction Severity Comments Date Sulfa 08/16/2017 Inactive Allergies NKDA 09/04/2012 Medications Active Medications SIG Qnty Indications Ordering Provide r Date Proair HFA 108(90Base) mcg/Act Aer osol 2 puff every 4 hours as needed sob/wheezing 1units J20.9 Mina Mujica JR., M.D. 10/01/2017 Symbicort 160-4.5mcg/Act Aerosol 1 puff bid Unknown Lopressor 50mg Tablets qd Unknown Crestor 10mg Tablets take one (1) tab every pm Unknown Lisinopril-Hydrochlorothiazide 10-12.5mg Tablets 1 by mouth every day Unknown [address] 2 at 1am Unknown Losartan Potassium/Hydrochlorothiazide 50mg Unknown Immunizations Description No Information Available Vital Signs Date Vital Result Comment 04/05/2021 10:16am BP Systolic 130 mmHg BP Diastolic 76 mmHg Heart Rate 69 /min Respiratory Rate 18 /min O2 % BldC Oximetry 98 % Body Temperature 97.8 F Weight 149.00 lb Height 65 inches 5'5" BMI (Body Mass Index) 24.8 kg/m2 Pain Level 0 10/01/2017 10:34am BP Systolic 122 mmHg BP Diastolic 70 mmHg Heart Rate 85 /min Respiratory Rate 18 /min O2 % BldC Oximetry 95 % Body Temperature 98.5 F Weight 160.00 lb Height 65 inches 5'5" BMI (Body Mass Index) 26.6 kg/m2 Pain Level 3 Results Description No Information Available Procedures Date Code Description Status 04/05/2021 20806 Office/Outpatient New Low MDM 30 -44 Minutes Completed Medical Devices Description No Information Available Encounters Type Date Location Provider Dx Diagnosis Office Visit 04/05/2021 10:05a Main Office Mesfin Workman, Dwain H9 2.01 Otalgia, right ear Assessments Date Code Description Provider 04/05/2021 H92.01 Otalgia, right ear Dwain Piña Plan of Treatment 04/05/2021 - Dwain Amor* H92.01 Otalgia, right ear* Comments:* minimal discomfort onlyno signs of infectionminimal cerumenReferral to Audiology for formal hearing assessment and further evaluationFollow up with PCP prn Functional Status Description No Information Available Mental Status Description No Information Available Referrals Description No Information Available
--- OUTSIDE RECORDS SUMMARY | 2021-06-18 10:51 | CCD | Continuity of Care Document ---
Author Author Danika VALENTINO PA Organization Unknown Address [address] [place] [address] [place] [address] Phone [phone] Care Team Providers Care Veterinary Virus Serum Inspector Name Role Phone Simba Priest MD AUTM [phone] [place] [facility] [phone] Problems Description No Information Available Social History [...] Available Procedures Date Code Description Status 06/10/2021 39646 Office/Outpatient Established Lo w MDM 20-29 Min Completed 04/05/2021 44214 Office/Outpatient New Low MDM 30 -44 Minutes [...] right sided hearing issues. Closed 04/10/2021 [address] [place] [address] [phone]
--- OUTSIDE RECORDS SUMMARY | 2021-06-18 10:51 | CCD | Continuity of Care Document ---
Author Author Danika WORKMAN P.A. Organization Unknown Address [address] [place] [address] Phone [phone] Care Team Providers Care Reading Instructor Name Role Phone Simba Priest MD AUTM [phone] Problems Description No Information Available Social History [...] Available Procedures Date Code Description Status 04/05/2021 20294 Office/Outpatient New Low MDM 30 -44 Minutes [...]
--- OUTSIDE RECORDS SUMMARY | 2021-06-18 13:04 | CCD ---
Author Author [facility] Organization [facility] Address Unknown Phone Unavailable Care Team Providers Care Dobby Looms Pegger Name Role Phone CHICHO, Reggie SENIOR PA [...] Unavailable LETTIERE, A PARRISH PA Unavailable Unavailable JI, TOM PA Unavailable [...] Unavailable Unavailable JI, TOM PA Unavailable Unavailable IJ, TOM PA Unavailable [...] by Article 27-F of the [facility] Public Health law. If you continue you may have access to information: Regarding HIV / AIDS; Provided by facilities licensed or operated by the [facility] Office of Mental Health; or Provided by the [facility] Office for People With Developmental Disabilities. If such information is present, then the following [facility] mandated warning applies: This information has [...] law may result in a fine or mcc sentence or both. A general authorization for [...] Prim vannesa 06/10/2021 09:05:00 AM EDT [facility] ([facility]) Outpatient Attender: TOM Amador Prima ry 04/05/2021 10:05:00 AM EDT [facility] ([facility]) Immunizations Vaccine Date Status Description Data Source(s) COVID-19 VACCINE Moderna 11/07/2020 12:00:00 AM EDT completed [facility] Vaccine Series Complete: YESThis Data wa s Submitted to [facility] Via [employer]. COVID-19 VACCINE, MRNA-1273, LNP-S (MODERNA)/PF 11/07/2020 1 2:00:00 AM EDT completed [facility] COVID-19 VACCINE Moderna 10/10/2020 12:00:00 AM EST completed [facility] Vaccine Series Complete: NOThis Data was Submitted to [facility] Via [employer]. COVID-19 VACCINE, MRNA-1273, LNP-S (MODERNA)/PF 10/10/2020 1 2:00:00 AM EST completed [facility] Medications Medication Brand Name Start Date Product Form Dose Route Admi nistrative Instructions Pharmacy Instructions Status Indications Reaction Description Data Source(s) Triamcinolone Acetonide 1 MG/ML Topical Cream Triamcinolone Acetonide 06/10/2021 12:00:00 AM EDT active M [facility] ([facility]) Triamcinolone Acetonide 1 MG/ML Topical Cream 0.1 [...] BY MOUTH TWICE A DAY SOLD: 05/24/2021 [facility] valacyclovir 1000 MG Oral Tablet VALACYCLOVIR HCL 05/04/2021 12: 00:00 AM EDT tablet 21 TAKE ONE TABLET BY MOUTH THREE T IMES A DAY FOR 7 DAYS TAKE ONE TABLET BY MOUTH THREE TIMES A DAY FOR 7 DAYS SOLD: 05/04/2021 [facility] Hydrocortisone 10 MG/ML / Neomycin 3.5 M G/ML / Polymyxin B 68324 UNT/ML Otic Suspension 3.5-10,000-1 mg/mL-unit/mL-% NEOMYCIN/POLYMYXIN B/HYDROCORT [...] BY MOUTH TWICE A DAY SOLD: 10/15/2020 [facility] Hydrochlorothiazide 12.5 MG / Losartan Potassium 50 MG Oral Tablet 50-12.5 mg LOSARTAN/HYDROCHLOROTHIAZIDE 10/15/2020 12:00:00 AM EST tablet 90 TAKE ONE TABLET BY MOUTH EVERY DAY TAKE ONE TABLET BY MOUTH EVERY DAY SOLD: 01/13/2021 [facility] buspirone hydrochloride 10 MG Oral Tablet BUSPIRONE HCL 10/15/2020 12:00:00 AM EST tablet 180 TAKE ONE TABLET BY MOUTH TWI CE A DAY TAKE ONE TABLET BY MOUTH TWICE A DAY SOLD: 01/13/2021 [facility] 160-4.5 mcg/actuation 08/25/2020 12:00:00 AM [...] TABLET BY MOUTH ONCE DAILY SOLD: 07/18/2020 [facility] Insurance Providers Payer name Policy type / Coverage type Policy ID Covered democrat ID Covered democrat's relationship to linn Policy [place] Plan Information MEDICARE [id number] SP [id number] A MEDICARE [id number] SP [id number] [place] [id number] Self 1 [id number] [place] Primary [id number] Self 1 [id number] [place] Primary [id number] Self 1 [id number] [place] Medicare Primary [id number] Self 1 [id number] [place] Medicare Primary [id number] Self 1 [id number] [place] Medicare Primary [id number] Self 1 [id number] Medicare [place] Medicare Primary [id number] Self 1 [id number] Medicare [place] Medicare Primary [id number] Self 1 [id number] Medicare [place] Medicare Primary [id number] Self 1 [id number] Medicare Part B of [facility] Other 0 [id number] Self 0 [facility] MEDICAID [id number] SP [id number] Medicare Natl Gov't Servi Medicare Primary [id number] Self [id number] Medicare Natl Gov't Servi Medicare Primary [id number] Self [id number] MEDICARE P [id number] S [id number] A Medicare Part B of [facility] Other 0 [id number] Self 0 MEDICARE C [id number] S [id number] Y63 MEDICARE C [id number] S [id number] A Medicare Part B of [facility] Other 0 [id number] Self 0 MEDICAID [id number] SP [id number] Medicare Part B of [facility] Other 0 [id number] Self 0 Medicare Part B of [facility] Other 0 [id number] Self 0 [place] [id number] SP [id number] Medicare Part B of [facility] Other 0 [id number] Self 0 Problems, Conditions, and Diagnoses No Information Surgeries/Procedures Procedure Description Date Indications Data Source(s) OFFICE OUTPATIENT VISIT 15 MINUTES 06/10/2021 12:00:00 AM EDT [facility] ([facility]) OFFICE OUTPATIENT NEW 30 MINUTES 04/05/2021 12:00:00 A M EDT [facility] ([facility]) Results No Information Social History No Information Vital Signs ID Date Data Source UNK Name Value Range Interpretation Code Description Data Source(s) Systolic blood pressure 156 mm[Hg] 156 mm[Hg] M [facility] ([facility]) Diastolic blood pressure 78 mm[Hg] 78 mm[Hg] [facility] ([facility]) Heart rate 62 /min 62 /min [facility] ([facility]) Respiratory rate 20 /min 20 /min [facility] ( [facility] [place], [facility]) Oxygen saturation in Arterial blood by [facility]ulse oximetry 96 % 96 % [facility]) Body temperature 98.1 [degF] 98.1 [degF] [facility] ([facility], [facility]) Body weight 148.00 [lb_av] 148.00 [lb_av] MED[facility] T ([facility], [facility]) Body height 65 [in_i] 65 [in_i] [facility] ([facility], [facility]) 5'5" Body mass index (BMI) [Ratio] 24.6 kg/m2 24.6 k g/m2 [facility] ([facility], [facility]) Systolic blood pressure 130 mm[Hg] 130 mm[Hg] [facility] ([facility], [facility]) Diastolic blood pressure 76 mm[Hg] 76 mm[Hg] [facility] ([facility], [facility]) Heart rate 69 /min 69 /min [facility] ([facility] [place], [facility]) Respiratory rate 18 /min 18 /min [facility] ( [facility], [facility]) Oxygen saturation in Arterial blood by Pulse oximetry 98 % 98 % [facility] ([facility], [facility]) Body temperature 97.8 [degF] 97.8 [degF] [facility] ([facility]) Body weight 149.00 [lb_av] 149.00 [lb_av] [facility]) Body height 65 [in_i] 65 [in_i] [facility] ([facility], [facility]) 5'5" Body mass index (BMI) [Ratio] 24.8 kg/m2 24.8 k g/m2 [facility] ([facility], [facility])
[2021-06-18 14:25] VITALS: BP 142/64
== END 2021-06-18 14:48 | disposition home or self-care (01) ==
LOC: M ED 10:43
DX: R21 Rash and other nonspecific skin eruption (principal); I10 Essential (primary) hypertension; J44.9 Chronic obstructive pulmonary disease, unspecified; E78.5 Hyperlipidemia, unspecified; Z88.2 Allergy status to sulfonamides; Z79.899 Other long term (current) drug therapy; Z79.82 Long term (current) use of aspirin

== ENCOUNTER 2021-12-14 12:07 | Emergency (ER) | payer MEDICARE ==
[~2021-12-14] VITALS: Ht 165.1 cm; Wt 68.2 kg
[2021-12-14] MEDS ORDERED: BUSP10TA (12:28)
[2021-12-14] MEDS ORDERED: DERMABOND TOPICAL SKIN ADHESIVE TOP ONE (15:35)
[2021-12-14] MEDS ORDERED: BOOSTRIX/ADACEL VACCINE (DIPHTH/PERTUSS/ACELL/TETANUS) 0.5ML SYR IM ONE (15:35)
[2021-12-14 16:12] VITALS: BP 174/85
== END 2021-12-14 16:13 | disposition home or self-care (01) ==
LOC: M ED 12:07
DX: S61.412A Laceration without foreign body of left hand, initial encounter (principal); W22.8XXA Striking against or struck by other objects, initial encounter; R03.0 Elevated blood-pressure reading, without diagnosis of hypertension; I10 Essential (primary) hypertension; J44.9 Chronic obstructive pulmonary disease, unspecified; Z88.2 Allergy status to sulfonamides; Z79.51 Long term (current) use of inhaled steroids; Z79.899 Other long term (current) drug therapy; Y92.9 Unspecified place or not applicable; Y93.9 Activity, unspecified; Y99.9 Unspecified external cause status

== ENCOUNTER 2022-05-28 09:10 | Emergency (ER) | payer MEDICARE ==
[~2022-05-28] VITALS: Ht 167.6 cm; Wt 66.8 kg
[~2022-05-28 09:10] MED LIST changes: +BUSP10TA
[2022-05-28] MEDS ORDERED: BENZ200C70 (09:26)
[2022-05-28] MEDS ORDERED: DOXY-443 (09:26)
[2022-05-28] MEDS ORDERED: PRED20TA (09:26)
[2022-05-28] MEDS ORDERED: ONDA4TAB6 (09:26)
[2022-05-28 09:53] LABS: BASO % 0.1 % (0.0-1.0); HEMATOCRIT 39.8 % (36.0-47.0); HEMOGLOBIN 13.8 g/dl (12.0-15.5); LYMPH # 1.9 10^3/uL (1.5-5.0); LYMPH % 11.7 % (24.0-44.0); MEAN CORPUSCULAR HEMOGLOBIN 30.8 pg (27.0-33.0); MEAN CORPUSCULAR HGB CONC 34.7 g/dl (32.0-36.5); MEAN CORPUSCULAR VOLUME 88.8 fl (80.0-96.0); MONO % 9.4 % (2.0-8.0); NEUTROPHILS # 12.8 10^3/uL (1.5-8.5); NEUTROPHILS % 77.5 % (36.0-66.0); PLATELET COUNT, AUTOMATED 539 10^3/uL (150-450); RED BLOOD COUNT 4.48 10^6/uL (4.00-5.40); WHITE BLOOD COUNT 16.6 10^3/uL (4.0-10.0)
[2022-05-28 10:24] LABS: RSV AMPLIFICATION NEGATIVE (NEGATIVE)
[2022-05-28 10:36] LABS: MB/CK RELATIVE INDEX 5.88 (< OR =4)
[2022-05-28 10:39] LABS: MONO # 1.6 10^3/uL (0.0-0.8)
[2022-05-28 10:45] LABS: ALBUMIN 3.5 GM/DL (3.2-5.2); BILIRUBIN,DIRECT 0.3 MG/DL (0.0-0.2); BILIRUBIN,TOTAL 0.6 MG/DL (0.2-1.0); CALCIUM LEVEL 9.5 MG/DL (8.8-10.2); GLOMERULAR FILTRATION RATE 56.5 (>32); POTASSIUM SERUM 3.7 MEQ/L (3.5-5.1); THYROID STIMULATING HORMONE 2.63 uIU/ML (0.358-3.740); THYROXINE (T4) 6.2 UG/DL (4.5-12.0); TOTAL PROTEIN 6.6 GM/DL (6.4-8.2)
[2022-05-28] MEDS ORDERED: ISOVUE-370 76% 100ML VIAL As Ordered ONE (11:44)
[2022-05-28 12:09] LABS: MAGNESIUM LEVEL 2.2 MG/DL (1.8-2.4)
[2022-05-28] MEDS ORDERED: ELIQ5TAB PO (13:37)
[2022-05-28 14:00] VITALS: BP 149/70
== END 2022-05-28 14:20 | disposition home or self-care (01) ==
LOC: M ED 09:10
DX: I48.0 Paroxysmal atrial fibrillation (principal); I10 Essential (primary) hypertension; J44.9 Chronic obstructive pulmonary disease, unspecified; E78.5 Hyperlipidemia, unspecified; Z79.51 Long term (current) use of inhaled steroids; Z79.811 Long term (current) use of aromatase inhibitors; Z79.899 Other long term (current) drug therapy; Z88.2 Allergy status to sulfonamides
CPT/HCPCS: 36415; 71046; 71275; 80048; 80076; 82550; 82553; 83735; 83880; 84436; 84443; 84484; 85025; 87631; 93005; 99284; Q9967

== ENCOUNTER 2022-06-10 07:16 | Inpatient (IN) | payer MEDICARE ==
[~2022-06-10 07:16] MED LIST changes: +BENZ200C70 PO; -BUSP10TA; +BUSP10TA PO; +DOXY-443; +ELIQ5TAB PO; +ONDA4TAB6 PO; +PRED20TA
[2022-06-10] MEDS ORDERED: SYMBICORT 160/4.5MCG INHALER 6GM INH SCH (09:00)
[2022-06-10] MEDS ORDERED: POTASSIUM CHLORIDE 10MEQ SR TABLET PO ONE ×2 (09:30→11:00)
[2022-06-10 09:33] LABS: BASO % 0.5 % (0.0-1.0); EOS # 0.3 10^3/uL (0.0-0.5); EOS % 5.3 % (0.0-3.0); HEMATOCRIT 35.5 % (36.0-47.0); HEMOGLOBIN 12.1 g/dl (12.0-15.5); LYMPH # 0.9 10^3/uL (1.5-5.0); LYMPH % 15.5 % (24.0-44.0); MEAN CORPUSCULAR HEMOGLOBIN 30.5 pg (27.0-33.0); MEAN CORPUSCULAR HGB CONC 34.1 g/dl (32.0-36.5); MEAN CORPUSCULAR VOLUME 89.4 fl (80.0-96.0); MONO # 0.7 10^3/uL (0.0-0.8); MONO % 12.4 % (2.0-8.0); NEUTROPHILS # 3.7 10^3/uL (1.5-8.5); NEUTROPHILS % 65.6 % (36.0-66.0); PLATELET COUNT, AUTOMATED 354 10^3/uL (150-450); RED BLOOD COUNT 3.97 10^6/uL (4.00-5.40); WHITE BLOOD COUNT 5.6 10^3/uL (4.0-10.0)
[2022-06-10 09:48] LABS: INR 1.63; PROTHROMBIN TIME 19.6 SECONDS (12.5-14.5)
[2022-06-10 09:49] LABS: APPEARANCE, URINE MANUAL HAZY (CLEAR); COLOR, URINE MANUAL LT YELLOW (YELLOW)
[2022-06-10 09:49] LABS: PARTIAL THROMBOPLASTIN TIME 41.7 SECONDS (24.8-34.2)
[2022-06-10 09:50] LABS: BILIRUBIN, URINE MANUAL NEGATIVE (NEGATIVE); BLOOD URINE MANUAL TRACE (NEGATIVE); GLUCOSE, URINE (UA) MANUAL NEGATIVE (NEGATIVE); KETONE, URINE MANUAL NEGATIVE (NEGATIVE); LEUKOCYTE ESTERASE, URINE MAN POSITIVE (NEGATIVE); NITRITE, URINE MANUAL NEGATIVE (NEGATIVE); PROTEIN, URINE MANUAL NEGATIVE (NEGATIVE); UROBILINOGEN, URINE MANUAL NORMAL (NORMAL)
[2022-06-10 09:57] LABS: BACTERIA, URINE MOD AMOUNT; SQUAMOUS EPITHELIAL CELL URINE MOD AMOUNT /hpf (SMALL AMT); WBC, URINE 20-30 /hpf (0-3)
[2022-06-10 09:58] LABS: HYALINE CAST, URINE NONE SEEN /lpf (0-1); MUCUS, URINE SMALL AMOUNT (NEGATIVE); TRANSITIONAL EPI CELLS, URINE SMALL AMOUNT /hpf
[2022-06-10] MEDS ORDERED: NS 0 ML IV ONE (11:00)
[2022-06-10] MEDS ORDERED: ONDANSETRON 4MG 2ML VIAL IV PRN (11:00)
[2022-06-10] MEDS ORDERED: cefTRIAXone SOD 1 GM in D5W MINI-BAG PLUS 50 ML IV ONE (11:00)
[2022-06-10] MEDS ORDERED: ELIQ5TAB PO (11:29)
[2022-06-10] MEDS ORDERED: LOSA50TA5 PO (11:29)
[2022-06-10 11:38] LABS: RSV AMPLIFICATION NEGATIVE (NEGATIVE)
[2022-06-10] MEDS ORDERED: HOME MED LIST COMPLETE! XX SCH (11:40)
[2022-06-10 11:56] LABS: CK-MB VALUE MASS 1.3 NG/ML (<3.6); MB/CK RELATIVE INDEX 2.28 (< OR =4)
[2022-06-10] MEDS ORDERED: ONDANSETRON 4MG ORAL DISINTEGRATING TAB PO PRN (12:50)
[2022-06-10 12:53] LABS: ALBUMIN 2.8 GM/DL (3.2-5.2); BILIRUBIN,TOTAL 0.9 MG/DL (0.2-1.0); CALCIUM LEVEL 9.1 MG/DL (8.8-10.2); CREATININE FOR GFR 1.42 MG/DL (0.55-1.30); GLOMERULAR FILTRATION RATE 37.7 (>32); POTASSIUM SERUM 3.4 MEQ/L (3.5-5.1); TOTAL PROTEIN 6.2 GM/DL (6.4-8.2)
[2022-06-10] MEDS: busPIRone 10 MG TAB PO SCH ×2 (15:13→20:08)
[2022-06-10 15:42] VITALS: BP 119/55
[2022-06-10 15:42] LABS: HEMOGLOBIN A1c 6.1 %
[2022-06-10 20:08] VITALS: BP 119/58
[2022-06-10] MEDS: ROSUVASTATIN 10 MG TAB (CRESTOR) PO SCH (20:08)
[2022-06-10] MEDS: METOPROLOL TART 12.5 MG PER 1/2 TAB PO SCH (20:08)
[2022-06-10] MEDS ORDERED: METOPROLOL TART 25 MG TABLET PO SCH (21:00)
[2022-06-10] MEDS ORDERED: ACETAMINOPHEN TAB 650MG DOSE (2X325MG) PO PRN (21:15)
[2022-06-10] MEDS: SYMBICORT 160/4.5MCG INHALER 6GM INH SCH (21:21)
[2022-06-11 05:35] VITALS: BP 126/75
[2022-06-11 06:14] LABS: HEMATOCRIT 34.8 % (36.0-47.0); HEMOGLOBIN 11.9 g/dl (12.0-15.5); MEAN CORPUSCULAR HEMOGLOBIN 30.7 pg (27.0-33.0); MEAN CORPUSCULAR HGB CONC 34.2 g/dl (32.0-36.5); MEAN CORPUSCULAR VOLUME 89.7 fl (80.0-96.0); PLATELET COUNT, AUTOMATED 332 10^3/uL (150-450); RED BLOOD COUNT 3.88 10^6/uL (4.00-5.40); WHITE BLOOD COUNT 5.4 10^3/uL (4.0-10.0)
[2022-06-11 06:45] LABS: ALBUMIN 2.7 GM/DL (3.2-5.2); BILIRUBIN,TOTAL 0.6 MG/DL (0.2-1.0); CALCIUM LEVEL 8.3 MG/DL (8.8-10.2); CREATININE FOR GFR 1.01 MG/DL (0.55-1.30); GLOMERULAR FILTRATION RATE 55.9 (>32); TOTAL PROTEIN 5.6 GM/DL (6.4-8.2)
[2022-06-11] MEDS: BENZONATATE 100MG CAPSULE PO PRN ×2 (06:48→20:05)
[2022-06-11] MEDS: SYMBICORT 160/4.5MCG INHALER 6GM INH SCH ×2 (07:36→19:32)
[2022-06-11] MEDS: busPIRone 10 MG TAB PO SCH ×2 (09:04→20:05)
[2022-06-11] MEDS: METOPROLOL TART 12.5 MG PER 1/2 TAB PO SCH ×2 (09:05→20:06)
[2022-06-11] MEDS: NS 1,000 ML IV SCH ×2 (10:11→20:05)
[2022-06-11 15:00] VITALS: BP 134/60
[2022-06-11] MEDS: ROSUVASTATIN 10 MG TAB (CRESTOR) PO SCH (20:05)
[2022-06-11 20:07] VITALS: BP 132/60
[2022-06-12 06:00] VITALS: BP 130/61
[2022-06-12] MEDS: NS 1,000 ML IV SCH (06:05)
[2022-06-12 06:07] LABS: MEAN CORPUSCULAR HEMOGLOBIN 30.5 pg (27.0-33.0); MEAN CORPUSCULAR HGB CONC 33.3 g/dl (32.0-36.5); MEAN CORPUSCULAR VOLUME 91.4 fl (80.0-96.0); PLATELET COUNT, AUTOMATED 308 10^3/uL (150-450); RED BLOOD COUNT 3.61 10^6/uL (4.00-5.40); WHITE BLOOD COUNT 4.8 10^3/uL (4.0-10.0)
[2022-06-12 06:38] LABS: ALBUMIN 2.4 GM/DL (3.2-5.2); ALT/SGPT 18 U/L (12-78); BILIRUBIN,TOTAL 0.4 MG/DL (0.2-1.0); BLOOD UREA NITROGEN 11 MG/DL (7-18); CALCIUM LEVEL 8.1 MG/DL (8.8-10.2); CARBON DIOXIDE LEVEL 26 MEQ/L (21-32); CHLORIDE LEVEL 104 MEQ/L (98-107); CREATININE FOR GFR 0.82 MG/DL (0.55-1.30); GLOMERULAR FILTRATION RATE > 60.0 (>32); GLUCOSE, FASTING 126 MG/DL (70-100); POTASSIUM SERUM 3.7 MEQ/L (3.5-5.1); SODIUM LEVEL 137 MEQ/L (136-145); TOTAL PROTEIN 4.9 GM/DL (6.4-8.2)
[2022-06-12] MEDS: SYMBICORT 160/4.5MCG INHALER 6GM INH SCH ×2 (07:14→19:09)
[2022-06-12] MEDS: busPIRone 10 MG TAB PO SCH ×2 (08:22→21:18)
[2022-06-12] MEDS: CIPROFLOXACIN 500MG TABLET PO SCH ×2 (08:22→17:32)
[2022-06-12] MEDS: LACTOBACILLUS ACIDOPHILUS CAP (BACID) PO SCH ×2 (08:22→17:32)
[2022-06-12] MEDS: METOPROLOL TART 12.5 MG PER 1/2 TAB PO SCH ×2 (08:23→21:22)
[2022-06-12] MEDS ORDERED: FLUBLOK(EGG FREE)(QUAD)INFLUENZA VACC 0.5ML SYRINGE 18YRS & OLDER IM.IMMUN ONE (09:00)
[2022-06-12] MEDS ORDERED: MIRALAX *UNIT DOSE* 17GM PACKET PO PRN (12:50)
[2022-06-12] MEDS: DOCUSATE SODIUM 100MG CAPSULE PO SCH ×2 (13:08→21:18)
[2022-06-12 14:00] VITALS: BP 140/76
[2022-06-12 19:54] VITALS: BP 134/73
[2022-06-12] MEDS ORDERED: SENNA 8.6 MG TAB (SENOKOT) PO SCH (21:00)
[2022-06-12] MEDS: ROSUVASTATIN 10 MG TAB (CRESTOR) PO SCH (21:18)
[2022-06-12 21:22] VITALS: BP 153/84
[2022-06-13 05:10] VITALS: BP 151/81
[2022-06-13 06:35] LABS: HEMATOCRIT 35.1 % (36.0-47.0); HEMOGLOBIN 11.7 g/dl (12.0-15.5); MEAN CORPUSCULAR HEMOGLOBIN 30.8 pg (27.0-33.0); MEAN CORPUSCULAR HGB CONC 33.3 g/dl (32.0-36.5); MEAN CORPUSCULAR VOLUME 92.4 fl (80.0-96.0); PLATELET COUNT, AUTOMATED 370 10^3/uL (150-450); WHITE BLOOD COUNT 5.3 10^3/uL (4.0-10.0)
[2022-06-13] MEDS: CIPROFLOXACIN 500MG TABLET PO SCH (06:56)
[2022-06-13 07:17] LABS: ALBUMIN 2.7 GM/DL (3.2-5.2); ALT/SGPT 20 U/L (12-78); BILIRUBIN,TOTAL 0.7 MG/DL (0.2-1.0); BLOOD UREA NITROGEN 6 MG/DL (7-18); CALCIUM LEVEL 8.5 MG/DL (8.8-10.2); CARBON DIOXIDE LEVEL 28 MEQ/L (21-32); CHLORIDE LEVEL 105 MEQ/L (98-107); CREATININE FOR GFR 0.82 MG/DL (0.55-1.30); GLOMERULAR FILTRATION RATE > 60.0 (>32); GLUCOSE, FASTING 107 MG/DL (70-100); SODIUM LEVEL 139 MEQ/L (136-145); TOTAL PROTEIN 5.4 GM/DL (6.4-8.2)
[2022-06-13] MEDS: SYMBICORT 160/4.5MCG INHALER 6GM INH SCH (07:59)
[2022-06-13] MEDS: DOCUSATE SODIUM 100MG CAPSULE PO SCH (08:23)
[2022-06-13] MEDS: busPIRone 10 MG TAB PO SCH (08:23)
[2022-06-13] MEDS: LACTOBACILLUS ACIDOPHILUS CAP (BACID) PO SCH (08:23)
[2022-06-13] MEDS: METOPROLOL TART 12.5 MG PER 1/2 TAB PO SCH (08:24)
[2022-06-13] MEDS ORDERED: APIXABAN 5 MG TAB (ELIQUIS) PO SCH (09:00)
[2022-06-13] MEDS ORDERED: BISACODYL 10 MG SUPP PR SCH (09:00)
[2022-06-13] MEDS ORDERED: CIPR-249 PO (11:33)
[2022-06-13] MEDS ORDERED: COLA100C5 PO (11:33)
[2022-06-13] MEDS ORDERED: SENN18TA PO (11:33)
[2022-06-13] MEDS ORDERED: LOSA25TA13 PO (11:49)
== END 2022-06-13 12:54 | disposition home or self-care (01) | DRG 813 ==
LOC: EDBD 07:16 → M ED 07:16 → M ED INP 10:59 → INTOOBSV 10:59 → ENRESERV 14:45 → M MSPAV 15:42 → OBSVTOIN 06-11 17:00
PROVIDERS: ADMIT Internal Medicine; ATTEND Internal Medicine
DX: D68.32 Hemorrhagic disorder due to extrinsic circulating anticoagulants (principal); N17.9 Acute kidney failure, unspecified; N39.0 Urinary tract infection, site not specified; E87.1 Hypo-osmolality and hyponatremia; E78.5 Hyperlipidemia, unspecified; E87.6 Hypokalemia; J44.9 Chronic obstructive pulmonary disease, unspecified; I10 Essential (primary) hypertension; R04.0 Epistaxis; R19.7 Diarrhea, unspecified; I48.91 Unspecified atrial fibrillation; Z79.01 Long term (current) use of anticoagulants; Z88.2 Allergy status to sulfonamides; Z79.899 Other long term (current) drug therapy; Z87.891 Personal history of nicotine dependence; N20.0 Calculus of kidney; E86.0 Dehydration

== ENCOUNTER 2022-08-23 09:56 | Emergency (ER) | payer MEDICARE ==
[~2022-08-23] VITALS: Ht 165.1 cm; Wt 65.0 kg
[~2022-08-23 09:56] MED LIST changes: +CIPR-249 PO; +COLA100C5 PO; +LOSA25TA13 PO; +SENN18TA PO
[2022-08-23] MEDS ORDERED: ACETAMINOPHEN TAB 650MG DOSE (2X325MG) PO ONE (13:05)
[2022-08-23] MEDS ORDERED: TRIAMCINOLONE ACETONIDE SUSP 40MG/ML 1ML VIAL IA STA ×2 (13:59→14:20)
[2022-08-23] MEDS ORDERED: LIDOCAINE 1% MDV 20ML VIAL SC ONE (14:00)
[2022-08-23 15:02] VITALS: BP 148/70
== END 2022-08-23 15:08 | disposition home or self-care (01) ==
LOC: M ED 09:56
DX: M25.561 Pain in right knee (principal); E11.9 Type 2 diabetes mellitus without complications; I10 Essential (primary) hypertension; Z86.79 Personal history of other diseases of the circulatory system; Z79.4 Long term (current) use of insulin; Z79.01 Long term (current) use of anticoagulants; Z79.811 Long term (current) use of aromatase inhibitors; Z79.899 Other long term (current) drug therapy; Z88.2 Allergy status to sulfonamides
CPT/HCPCS: 73564; 99283; J3301

== ENCOUNTER → 2022-08-26 | Outpatient (CLI) | payer MEDICARE | LOC: M SOG 10:29 | PROVIDERS: ATTEND Orthopaedic Surgery Adult Reconstructive Orthopaedic Surgery | DX: M25.561 Pain in right knee (principal) ==

== ENCOUNTER 2022-09-02 08:05 | Emergency (ER) | payer MEDICARE ==
[~2022-09-02] VITALS: Ht 165.1 cm; Wt 65.0 kg
[2022-09-02 09:22] LABS: BASO % 0.2 % (0.0-1.0); EOS % 0.2 % (0.0-3.0); HEMATOCRIT 36.7 % (36.0-47.0); HEMOGLOBIN 12.2 g/dl (12.0-15.5); LYMPH % 16.4 % (24.0-44.0); MEAN CORPUSCULAR HEMOGLOBIN 31.3 pg (27.0-33.0); MEAN CORPUSCULAR HGB CONC 33.2 g/dl (32.0-36.5); MEAN CORPUSCULAR VOLUME 94.1 fl (80.0-96.0); MONO # 1.2 10^3/uL (0.0-0.8); MONO % 9.9 % (2.0-8.0); NEUTROPHILS # 8.8 10^3/uL (1.5-8.5); NEUTROPHILS % 71.5 % (36.0-66.0); PLATELET COUNT, AUTOMATED 406 10^3/uL (150-450); WHITE BLOOD COUNT 12.3 10^3/uL (4.0-10.0)
[2022-09-02] MEDS ORDERED: DICL1GEL3 TOP (09:28)
[2022-09-02] MEDS ORDERED: CLAR10CA3 PO (09:28)
[2022-09-02] MEDS ORDERED: VITA100093 PO (09:28)
[2022-09-02 09:41] LABS: INR 0.96
[2022-09-02 09:43] LABS: BLOOD UREA NITROGEN 30 MG/DL (9-23); CARBON DIOXIDE LEVEL 26 MMOL/L (20-31); CHLORIDE LEVEL 98 MMOL/L (98-107); CREATININE FOR GFR 0.91 MG/DL (0.55-1.30); GLOMERULAR FILTRATION RATE > 60.0 (>32); GLUCOSE, FASTING 112 MG/DL (74-106); POTASSIUM SERUM 4.4 MMOL/L (3.5-5.1); SODIUM LEVEL 132 MMOL/L (136-145)
[2022-09-02] MEDS ORDERED: MECLIZINE 25 MG TABLET PO ONE (09:55)
[2022-09-02] MEDS ORDERED: MECL1TAB31 PO (16:08)
[2022-09-02 17:48] VITALS: BP 184/79
== END 2022-09-02 17:47 | disposition home or self-care (01) ==
LOC: M ED 08:05
DX: M71.21 Synovial cyst of popliteal space [Baker], right knee (principal); H81.4 Vertigo of central origin; I10 Essential (primary) hypertension; E78.5 Hyperlipidemia, unspecified; Z86.79 Personal history of other diseases of the circulatory system; Z87.891 Personal history of nicotine dependence; Z79.01 Long term (current) use of anticoagulants; Z88.2 Allergy status to sulfonamides

== ENCOUNTER 2022-09-04 13:06 | Inpatient (IN) | payer MEDICARE ==
[~2022-09-04] VITALS: Ht 165.1 cm; Wt 65.0 kg
[~2022-09-04 13:06] MED LIST changes: +CLAR10CA3 PO; +DICL1GEL3 TOP; +MECL1TAB31 PO; +VITA100093 PO
[2022-09-04 15:24] LABS: BASO % 0.2 % (0.0-1.0); HEMATOCRIT 28.3 % (36.0-47.0); HEMOGLOBIN 9.8 g/dl (12.0-15.5); LYMPH # 2.3 10^3/uL (1.5-5.0); LYMPH % 12.4 % (24.0-44.0); MEAN CORPUSCULAR HEMOGLOBIN 32.1 pg (27.0-33.0); MEAN CORPUSCULAR HGB CONC 34.6 g/dl (32.0-36.5); MEAN CORPUSCULAR VOLUME 92.8 fl (80.0-96.0); MONO % 5.5 % (2.0-8.0); NEUTROPHILS # 14.9 10^3/uL (1.5-8.5); NEUTROPHILS % 80.8 % (36.0-66.0); PLATELET COUNT, AUTOMATED 326 10^3/uL (150-450); RED BLOOD COUNT 3.05 10^6/uL (4.00-5.40); WHITE BLOOD COUNT 18.4 10^3/uL (4.0-10.0)
[2022-09-04 15:44] LABS: BLOOD UREA NITROGEN 20 MG/DL (9-23); C REACTIVE PROTEIN QUANTITATIV < 0.40 MG/DL (<1.0); CALCIUM LEVEL 8.3 MG/DL (8.3-10.6); CARBON DIOXIDE LEVEL 24 MMOL/L (20-31); CHLORIDE LEVEL 92 MMOL/L (98-107); CREATININE FOR GFR 0.75 MG/DL (0.55-1.30); GLOMERULAR FILTRATION RATE > 60.0 (>32); GLUCOSE, FASTING 110 MG/DL (74-106); SODIUM LEVEL 125 MMOL/L (136-145)
[2022-09-04 17:13] LABS: RSV AMPLIFICATION NEGATIVE (NEGATIVE)
[2022-09-04 17:24] LABS: ERYTHROCYTE SEDIMENTATION RATE 6 mm/hr (0-30)
[2022-09-04] MEDS ORDERED: oxyCODONE 5MG TAB PO PRN (17:50)
[2022-09-04] MEDS ORDERED: MECL-86 PO (17:53)
[2022-09-04] MEDS ORDERED: LOSA50TA5 PO (17:53)
[2022-09-04] MEDS ORDERED: HOME MED LIST COMPLETE! XX SCH (17:55)
[2022-09-04 18:07] LABS: APPEARANCE, URINE MANUAL CLEAR (CLEAR); BILIRUBIN, URINE MANUAL NEGATIVE (NEGATIVE); BLOOD URINE MANUAL NEGATIVE (NEGATIVE); COLOR, URINE MANUAL YELLOW (YELLOW); GLUCOSE, URINE (UA) MANUAL NEGATIVE (NEGATIVE); KETONE, URINE MANUAL NEGATIVE (NEGATIVE); LEUKOCYTE ESTERASE, URINE MAN POSITIVE (NEGATIVE); NITRITE, URINE MANUAL NEGATIVE (NEGATIVE); PROTEIN, URINE MANUAL NEGATIVE (NEGATIVE); UROBILINOGEN, URINE MANUAL NORMAL (NORMAL)
[2022-09-04 18:15] LABS: RBC, URINE 0-1 /hpf (0-3)
[2022-09-04 18:16] LABS: BACTERIA, URINE SMALL AMOUNT; CALCIUM OXALATE CRYSTALS,URINE SMALL AMOUNT /hpf; HYALINE CAST, URINE NONE SEEN /lpf (0-1); MUCUS, URINE MOD AMOUNT (NEGATIVE); SQUAMOUS EPITHELIAL CELL URINE MOD AMOUNT /hpf (SMALL AMT)
[2022-09-04] MEDS: SYMBICORT 160/4.5MCG INHALER 6GM INH SCH (19:57)
[2022-09-04] MEDS: busPIRone 10 MG TAB PO SCH (20:03)
[2022-09-04] MEDS: ACETAMINOPHEN 500 MG TAB PO SCH (20:03)
[2022-09-04] MEDS: ROSUVASTATIN 10 MG TAB (CRESTOR) PO SCH (20:03)
[2022-09-04] MEDS: METOPROLOL TART 25 MG TABLET PO SCH (20:03)
[2022-09-04 20:04] LABS: HEMATOCRIT 28.6 % (36.0-47.0); HEMOGLOBIN 9.7 g/dl (12.0-15.5)
[2022-09-04 20:16] LABS: BLOOD UREA NITROGEN 17 MG/DL (9-23); CALCIUM LEVEL 8.6 MG/DL (8.3-10.6); CARBON DIOXIDE LEVEL 25 MMOL/L (20-31); CHLORIDE LEVEL 89 MMOL/L (98-107); CREATININE FOR GFR 0.65 MG/DL (0.55-1.30); GLOMERULAR FILTRATION RATE > 60.0 (>32); GLUCOSE, FASTING 101 MG/DL (74-106); POTASSIUM SERUM 3.8 MMOL/L (3.5-5.1); SODIUM LEVEL 124 MMOL/L (136-145)
[2022-09-04 23:40] LABS: BLOOD UREA NITROGEN 20 MG/DL (9-23); CALCIUM LEVEL 8.6 MG/DL (8.3-10.6); CARBON DIOXIDE LEVEL 27 MMOL/L (20-31); CHLORIDE LEVEL 88 MMOL/L (98-107); CREATININE FOR GFR 0.85 MG/DL (0.55-1.30); GLOMERULAR FILTRATION RATE > 60.0 (>32); GLUCOSE, FASTING 127 MG/DL (74-106); POTASSIUM SERUM 4.4 MMOL/L (3.5-5.1); SODIUM LEVEL 123 MMOL/L (136-145)
[2022-09-05 07:03] LABS: HEMATOCRIT 28.1 % (36.0-47.0); HEMOGLOBIN 9.6 g/dl (12.0-15.5); MEAN CORPUSCULAR HEMOGLOBIN 31.6 pg (27.0-33.0); MEAN CORPUSCULAR HGB CONC 34.2 g/dl (32.0-36.5); MEAN CORPUSCULAR VOLUME 92.4 fl (80.0-96.0); PLATELET COUNT, AUTOMATED 306 10^3/uL (150-450); RED BLOOD COUNT 3.04 10^6/uL (4.00-5.40)
[2022-09-05 07:28] LABS: MAGNESIUM LEVEL 2.1 MG/DL (1.8-2.4)
[2022-09-05 07:30] LABS: BLOOD UREA NITROGEN 16 MG/DL (9-23); CALCIUM LEVEL 8.4 MG/DL (8.3-10.6); CARBON DIOXIDE LEVEL 28 MMOL/L (20-31); CHLORIDE LEVEL 89 MMOL/L (98-107); CREATININE FOR GFR 0.72 MG/DL (0.55-1.30); GLOMERULAR FILTRATION RATE > 60.0 (>32); GLUCOSE, FASTING 100 MG/DL (74-106); PHOSPHORUS LEVEL 3.9 MG/DL (2.4-5.1); SODIUM LEVEL 124 MMOL/L (136-145)
[2022-09-05] MEDS: SYMBICORT 160/4.5MCG INHALER 6GM INH SCH ×2 (08:23→20:05)
[2022-09-05] MEDS: METOPROLOL TART 25 MG TABLET PO SCH ×2 (08:58→21:01)
[2022-09-05] MEDS: LORATADINE 10 MG TAB PO SCH (08:59)
[2022-09-05] MEDS: VITAMIN D 1,000 INTERNATIONAL UNITS TABLET PO SCH (08:59)
[2022-09-05] MEDS: ACETAMINOPHEN 500 MG TAB PO SCH ×3 (08:59→21:01)
[2022-09-05] MEDS: busPIRone 10 MG TAB PO SCH ×2 (08:59→21:00)
[2022-09-05 09:40] LABS: IRON (FE) 59 UG/DL (50-170); PERCENT SATURATION 17.2 % (13.2-45.0); TOTAL IRON BINDING CAPACITY 344 UG/DL (250-425)
[2022-09-05 09:42] LABS: FERRITIN 197.5 NG/ML (7.3-270.7); FOLATE 12.3 NG/ML (>5.4); VITAMIN B12 LEVEL 255 PG/ML (211-911)
[2022-09-05] MEDS ORDERED: TOLVAPTAN 7.5 MG HALF-TAB PO ONE (12:00)
[2022-09-05 15:00] VITALS: BP 132/61
[2022-09-05] MEDS: MECLIZINE 25 MG TABLET PO PRN (16:34)
[2022-09-05 16:38] LABS: BLOOD UREA NITROGEN 20 MG/DL (9-23); CALCIUM LEVEL 8.5 MG/DL (8.3-10.6); CARBON DIOXIDE LEVEL 24 MMOL/L (20-31); CHLORIDE LEVEL 91 MMOL/L (98-107); CREATININE FOR GFR 0.83 MG/DL (0.55-1.30); GLOMERULAR FILTRATION RATE > 60.0 (>32); GLUCOSE, FASTING 121 MG/DL (74-106); POTASSIUM SERUM 4.1 MMOL/L (3.5-5.1); SODIUM LEVEL 126 MMOL/L (136-145)
[2022-09-05 19:59] VITALS: BP 135/62
[2022-09-05] MEDS: ROSUVASTATIN 10 MG TAB (CRESTOR) PO SCH (21:02)
[2022-09-06] VITALS: BP 142/66
[2022-09-06 04:00] VITALS: BP 138/64
[2022-09-06 05:09] LABS: BASO % 0.2 % (0.0-1.0); EOS % 0.4 % (0.0-3.0); HEMATOCRIT 28.1 % (36.0-47.0); HEMOGLOBIN 9.5 g/dl (12.0-15.5); LYMPH # 1.6 10^3/uL (1.5-5.0); LYMPH % 16.1 % (24.0-44.0); MEAN CORPUSCULAR HGB CONC 33.8 g/dl (32.0-36.5); MEAN CORPUSCULAR VOLUME 94.6 fl (80.0-96.0); MONO # 0.6 10^3/uL (0.0-0.8); MONO % 6.4 % (2.0-8.0); NEUTROPHILS # 7.6 10^3/uL (1.5-8.5); NEUTROPHILS % 76.4 % (36.0-66.0); RED BLOOD COUNT 2.97 10^6/uL (4.00-5.40)
[2022-09-06 05:36] LABS: MAGNESIUM LEVEL 2.1 MG/DL (1.8-2.4)
[2022-09-06 05:38] LABS: BLOOD UREA NITROGEN 18 MG/DL (9-23); CALCIUM LEVEL 8.6 MG/DL (8.3-10.6); CARBON DIOXIDE LEVEL 23 MMOL/L (20-31); CHLORIDE LEVEL 101 MMOL/L (98-107); CREATININE FOR GFR 0.73 MG/DL (0.55-1.30); GLOMERULAR FILTRATION RATE > 60.0 (>32); GLUCOSE, FASTING 108 MG/DL (74-106); PHOSPHORUS LEVEL 4.2 MG/DL (2.4-5.1); POTASSIUM SERUM 4.4 MMOL/L (3.5-5.1); SODIUM LEVEL 135 MMOL/L (136-145)
[2022-09-06] MEDS: SYMBICORT 160/4.5MCG INHALER 6GM INH SCH (07:32)
[2022-09-06 08:00] VITALS: BP 122/58
[2022-09-06] MEDS: MECLIZINE 25 MG TABLET PO PRN (08:30)
[2022-09-06 08:31] VITALS: BP 122/58
[2022-09-06] MEDS: METOPROLOL TART 25 MG TABLET PO SCH (08:31)
[2022-09-06] MEDS: busPIRone 10 MG TAB PO SCH (08:31)
[2022-09-06] MEDS: VITAMIN D 1,000 INTERNATIONAL UNITS TABLET PO SCH (08:31)
[2022-09-06] MEDS: LORATADINE 10 MG TAB PO SCH (08:31)
[2022-09-06] MEDS: ACETAMINOPHEN 500 MG TAB PO SCH (08:32)
[2022-09-06] MEDS ORDERED: XARE20TA PO ×2 (10:21→13:16)
[2022-09-06] MEDS ORDERED: LOSA50TA28 PO (10:21)
[2022-09-06 12:00] VITALS: BP 142/65
== END 2022-09-06 13:14 | DRG 813 ==
LOC: M ED 13:06 → M PCU 16:49 → M ED INP 16:49 → ENRESERV 09-05 13:41 → M PCU 09-05 15:00
PROVIDERS: ADMIT Internal Medicine; ATTEND Internal Medicine
DX: D68.32 Hemorrhagic disorder due to extrinsic circulating anticoagulants (principal); E22.2 Syndrome of inappropriate secretion of antidiuretic hormone; D62 Acute posthemorrhagic anemia; R58 Hemorrhage, not elsewhere classified; J44.9 Chronic obstructive pulmonary disease, unspecified; I10 Essential (primary) hypertension; Z79.01 Long term (current) use of anticoagulants; I48.91 Unspecified atrial fibrillation; Z79.899 Other long term (current) drug therapy; Z88.2 Allergy status to sulfonamides; Z87.891 Personal history of nicotine dependence

== ENCOUNTER 2022-09-06 11:05 | Inpatient (IN) | payer MEDICARE ==
[~2022-09-06] VITALS: Ht 165.1 cm; Wt 66.1 kg
[~2022-09-06 11:05] MED LIST changes: +LOSA50TA28 PO; +MECL-86 PO; +XARE20TA PO
[2022-09-06] MEDS ORDERED: XARE20TA PO (13:16)
[2022-09-06 13:25] VITALS: BP 165/69
[2022-09-06] MEDS ORDERED: ONDANSETRON 4MG TAB PO PRN (13:50)
[2022-09-06] MEDS ORDERED: BISACODYL 10MG SUPP PR PRN (13:50)
[2022-09-06] MEDS: REMEDY PHYTOPLEX Z-GUARD PASTE 113GM TUBE (FROM STOREROOM PRODUCT) TOP SCH ×2 (16:00→20:45)
[2022-09-06] MEDS: ACETAMINOPHEN 500 MG TAB PO SCH ×2 (17:02→20:43)
[2022-09-06 20:00] VITALS: BP 132/58
[2022-09-06] MEDS: SYMBICORT 160/4.5MCG INHALER 6GM INH SCH (20:00)
[2022-09-06] MEDS: ROSUVASTATIN 10 MG TAB (CRESTOR) PO SCH (20:43)
[2022-09-06] MEDS: busPIRone 10 MG TAB PO SCH (20:43)
[2022-09-06] MEDS: METOPROLOL TART 25 MG TABLET PO SCH (20:43)
[2022-09-06] MEDS: oxyCODONE 5MG TAB PO PRN (20:44)
[2022-09-06] MEDS: SENNA 8.6 MG TAB (SENOKOT) PO SCH (21:00)
[2022-09-06] MEDS: DOCUSATE SODIUM 100MG CAPSULE PO SCH (21:00)
[2022-09-07] MEDS: oxyCODONE 5MG TAB PO PRN ×2 (05:41→21:23)
[2022-09-07 06:00] VITALS: BP 164/70
[2022-09-07 07:13] LABS: BASO % 0.2 % (0.0-1.0); EOS # 0.1 10^3/uL (0.0-0.5); EOS % 0.9 % (0.0-3.0); HEMATOCRIT 26.4 % (36.0-47.0); HEMOGLOBIN 8.9 g/dl (12.0-15.5); LYMPH # 1.8 10^3/uL (1.5-5.0); LYMPH % 17.5 % (24.0-44.0); MEAN CORPUSCULAR HEMOGLOBIN 32.6 pg (27.0-33.0); MEAN CORPUSCULAR HGB CONC 33.7 g/dl (32.0-36.5); MEAN CORPUSCULAR VOLUME 96.7 fl (80.0-96.0); MONO # 0.8 10^3/uL (0.0-0.8); NEUTROPHILS # 7.5 10^3/uL (1.5-8.5); NEUTROPHILS % 72.7 % (36.0-66.0); PLATELET COUNT, AUTOMATED 291 10^3/uL (150-450); RED BLOOD COUNT 2.73 10^6/uL (4.00-5.40); WHITE BLOOD COUNT 10.4 10^3/uL (4.0-10.0)
[2022-09-07] MEDS: SYMBICORT 160/4.5MCG INHALER 6GM INH SCH ×2 (07:36→19:50)
[2022-09-07 07:59] LABS: ALKALINE PHOSPHATASE 52 U/L (46-116); ALT/SGPT 17 U/L (7.0-40); AST/SGOT 18 U/L (<34); BILIRUBIN,TOTAL 1.5 MG/DL (0.3-1.2); BLOOD UREA NITROGEN 24 MG/DL (9-23); CALCIUM LEVEL 8.5 MG/DL (8.3-10.6); CARBON DIOXIDE LEVEL 27 MMOL/L (20-31); CHLORIDE LEVEL 100 MMOL/L (98-107); CREATININE FOR GFR 0.79 MG/DL (0.55-1.30); GLOMERULAR FILTRATION RATE > 60.0 (>32); GLUCOSE, FASTING 93 MG/DL (74-106); POTASSIUM SERUM 4.2 MMOL/L (3.5-5.1); SODIUM LEVEL 134 MMOL/L (136-145); TOTAL PROTEIN 5.2 G/DL (5.7-8.2)
[2022-09-07] MEDS: PANTOPRAZOLE 40MG TAB (PROTONIX) PO SCH (08:28)
[2022-09-07] MEDS: LORATADINE 10 MG TAB PO SCH (08:28)
[2022-09-07] MEDS: VITAMIN D 1,000 INTERNATIONAL UNITS TABLET PO SCH (08:28)
[2022-09-07] MEDS: busPIRone 10 MG TAB PO SCH ×2 (08:29→21:24)
[2022-09-07] MEDS: LOSARTAN 25 MG TAB PO SCH (08:29)
[2022-09-07] MEDS: ACETAMINOPHEN 500 MG TAB PO SCH ×3 (08:29→21:24)
[2022-09-07] MEDS: REMEDY PHYTOPLEX Z-GUARD PASTE 113GM TUBE (FROM STOREROOM PRODUCT) TOP SCH ×3 (08:30→21:00)
[2022-09-07] MEDS: DOCUSATE SODIUM 100MG CAPSULE PO SCH ×2 (08:30→21:00)
[2022-09-07] MEDS: METOPROLOL TART 25 MG TABLET PO SCH ×2 (08:30→21:22)
[2022-09-07] MEDS: HEPARIN SOD (PORCINE) 5000UNITS/ML 1ML VIAL/SYRINGE SQ SCH ×2 (12:22→21:22)
[2022-09-07 13:58] VITALS: BP 136/63
[2022-09-07] MEDS: LIDOCAINE 5% (LIDODERM) PATCH TD SCH (16:03)
[2022-09-07 20:00] VITALS: BP 123/57
[2022-09-07] MEDS: SENNA 8.6 MG TAB (SENOKOT) PO SCH (21:00)
[2022-09-07] MEDS: MECLIZINE 25 MG TABLET PO PRN (21:22)
[2022-09-07] MEDS: ROSUVASTATIN 10 MG TAB (CRESTOR) PO SCH (21:24)
[2022-09-08 06:00] VITALS: BP 131/60
[2022-09-08 06:11] LABS: BASO % 0.4 % (0.0-1.0); EOS # 0.1 10^3/uL (0.0-0.5); EOS % 0.9 % (0.0-3.0); HEMATOCRIT 27.3 % (36.0-47.0); HEMOGLOBIN 8.9 g/dl (12.0-15.5); LYMPH # 1.5 10^3/uL (1.5-5.0); LYMPH % 16.3 % (24.0-44.0); MEAN CORPUSCULAR HGB CONC 32.6 g/dl (32.0-36.5); MEAN CORPUSCULAR VOLUME 98.2 fl (80.0-96.0); MONO # 0.7 10^3/uL (0.0-0.8); MONO % 7.7 % (2.0-8.0); NEUTROPHILS # 6.7 10^3/uL (1.5-8.5); NEUTROPHILS % 73.9 % (36.0-66.0); PLATELET COUNT, AUTOMATED 284 10^3/uL (150-450); RED BLOOD COUNT 2.78 10^6/uL (4.00-5.40)
[2022-09-08 06:27] LABS: BLOOD UREA NITROGEN 20 MG/DL (9-23); CARBON DIOXIDE LEVEL 26 MMOL/L (20-31); CHLORIDE LEVEL 101 MMOL/L (98-107); CREATININE FOR GFR 0.77 MG/DL (0.55-1.30); GLOMERULAR FILTRATION RATE > 60.0 (>32); GLUCOSE, FASTING 102 MG/DL (74-106); POTASSIUM SERUM 4.5 MMOL/L (3.5-5.1); SODIUM LEVEL 134 MMOL/L (136-145)
[2022-09-08] MEDS: DOCUSATE SODIUM 100MG CAPSULE PO SCH ×2 (07:30→20:37)
[2022-09-08] MEDS: LIDOCAINE 5% (LIDODERM) PATCH TD SCH (07:38)
[2022-09-08] MEDS: HEPARIN SOD (PORCINE) 5000UNITS/ML 1ML VIAL/SYRINGE SQ SCH ×2 (07:39→20:36)
[2022-09-08] MEDS: PANTOPRAZOLE 40MG TAB (PROTONIX) PO SCH (07:39)
[2022-09-08] MEDS: busPIRone 10 MG TAB PO SCH ×2 (07:43→20:37)
[2022-09-08] MEDS: METOPROLOL TART 25 MG TABLET PO SCH ×2 (07:44→20:37)
[2022-09-08] MEDS: LORATADINE 10 MG TAB PO SCH (07:44)
[2022-09-08] MEDS: ACETAMINOPHEN 500 MG TAB PO SCH ×3 (07:45→20:38)
[2022-09-08] MEDS: VITAMIN D 1,000 INTERNATIONAL UNITS TABLET PO SCH (07:45)
[2022-09-08] MEDS: LOSARTAN 25 MG TAB PO SCH (07:45)
[2022-09-08] MEDS: REMEDY PHYTOPLEX Z-GUARD PASTE 113GM TUBE (FROM STOREROOM PRODUCT) TOP SCH ×3 (07:47→20:39)
[2022-09-08] MEDS: MECLIZINE 25 MG TABLET PO PRN (07:47)
[2022-09-08] MEDS: SYMBICORT 160/4.5MCG INHALER 6GM INH SCH ×2 (08:00→20:57)
[2022-09-08] MEDS: oxyCODONE 5MG TAB PO PRN (11:01)
[2022-09-08] MEDS: oxyCODONE 5MG TAB PO SCH ×2 (12:00→16:45)
[2022-09-08] MEDS ORDERED: oxyCODONE 5MG TAB PO PRN (12:25)
[2022-09-08 14:00] VITALS: BP 115/58
[2022-09-08 20:00] VITALS: BP 141/65
[2022-09-08] MEDS: ROSUVASTATIN 10 MG TAB (CRESTOR) PO SCH (20:37)
[2022-09-08] MEDS: SENNA 8.6 MG TAB (SENOKOT) PO SCH (20:38)
[2022-09-09 06:00] VITALS: BP 132/62
[2022-09-09] MEDS: oxyCODONE 5MG TAB PO SCH ×3 (06:24→16:04)
[2022-09-09] MEDS: SYMBICORT 160/4.5MCG INHALER 6GM INH SCH ×2 (07:41→18:12)
[2022-09-09] MEDS: busPIRone 10 MG TAB PO SCH ×2 (08:29→20:40)
[2022-09-09] MEDS: LORATADINE 10 MG TAB PO SCH (08:29)
[2022-09-09] MEDS: METOPROLOL TART 25 MG TABLET PO SCH ×2 (08:30→20:40)
[2022-09-09] MEDS: VITAMIN D 1,000 INTERNATIONAL UNITS TABLET PO SCH (08:30)
[2022-09-09] MEDS: PANTOPRAZOLE 40MG TAB (PROTONIX) PO SCH (08:30)
[2022-09-09] MEDS: HEPARIN SOD (PORCINE) 5000UNITS/ML 1ML VIAL/SYRINGE SQ SCH ×2 (08:31→20:40)
[2022-09-09] MEDS: DOCUSATE SODIUM 100MG CAPSULE PO SCH ×2 (08:31→20:41)
[2022-09-09] MEDS: REMEDY PHYTOPLEX Z-GUARD PASTE 113GM TUBE (FROM STOREROOM PRODUCT) TOP SCH ×3 (08:31→20:42)
[2022-09-09] MEDS: LIDOCAINE 5% (LIDODERM) PATCH TD SCH (08:32)
[2022-09-09] MEDS: ACETAMINOPHEN 500 MG TAB PO SCH ×3 (08:32→20:41)
[2022-09-09] MEDS: LOSARTAN 25 MG TAB PO SCH (08:35)
[2022-09-09 14:00] VITALS: BP 122/58
[2022-09-09] MEDS ORDERED: oxyCODONE 5MG TAB PO PRN (15:25)
[2022-09-09] MEDS: MECLIZINE 12.5 MG TAB PO SCH ×2 (16:00→20:41)
[2022-09-09] MEDS: SPIRONOLACTONE 12.5MG PER 1/2 TABLET PO SCH (16:01)
[2022-09-09] MEDS: TIOTROPIUM INHALER/CAPSULE (SPIRIVA) INH SCH (18:11)
[2022-09-09 19:59] VITALS: BP 119/58
[2022-09-09] MEDS: SENNA 8.6 MG TAB (SENOKOT) PO SCH (20:40)
[2022-09-09] MEDS: ROSUVASTATIN 10 MG TAB (CRESTOR) PO SCH (20:40)
[2022-09-10 06:00] VITALS: BP 148/66
[2022-09-10 06:01] LABS: BASO % 0.3 % (0.0-1.0); EOS # 0.1 10^3/uL (0.0-0.5); EOS % 0.9 % (0.0-3.0); HEMATOCRIT 26.3 % (36.0-47.0); HEMOGLOBIN 8.5 g/dl (12.0-15.5); LYMPH # 1.8 10^3/uL (1.5-5.0); MEAN CORPUSCULAR HEMOGLOBIN 31.8 pg (27.0-33.0); MEAN CORPUSCULAR HGB CONC 32.3 g/dl (32.0-36.5); MEAN CORPUSCULAR VOLUME 98.5 fl (80.0-96.0); MONO # 0.6 10^3/uL (0.0-0.8); MONO % 7.1 % (2.0-8.0); NEUTROPHILS # 5.3 10^3/uL (1.5-8.5); NEUTROPHILS % 68.2 % (36.0-66.0); PLATELET COUNT, AUTOMATED 282 10^3/uL (150-450); RED BLOOD COUNT 2.67 10^6/uL (4.00-5.40); WHITE BLOOD COUNT 7.7 10^3/uL (4.0-10.0)
[2022-09-10 06:28] LABS: BLOOD UREA NITROGEN 24 MG/DL (9-23); CALCIUM LEVEL 8.3 MG/DL (8.3-10.6); CARBON DIOXIDE LEVEL 26 MMOL/L (20-31); CHLORIDE LEVEL 106 MMOL/L (98-107); CREATININE FOR GFR 0.77 MG/DL (0.55-1.30); GLOMERULAR FILTRATION RATE > 60.0 (>32); GLUCOSE, FASTING 94 MG/DL (74-106); POTASSIUM SERUM 4.1 MMOL/L (3.5-5.1); SODIUM LEVEL 139 MMOL/L (136-145)
[2022-09-10] MEDS: oxyCODONE 5MG TAB PO SCH ×3 (06:43→18:05)
[2022-09-10] MEDS: TIOTROPIUM INHALER/CAPSULE (SPIRIVA) INH SCH (07:26)
[2022-09-10] MEDS: SYMBICORT 160/4.5MCG INHALER 6GM INH SCH ×2 (07:26→21:01)
[2022-09-10] MEDS: REMEDY PHYTOPLEX Z-GUARD PASTE 113GM TUBE (FROM STOREROOM PRODUCT) TOP SCH ×3 (09:00→21:00)
[2022-09-10] MEDS: DOCUSATE SODIUM 100MG CAPSULE PO SCH ×2 (09:33→21:41)
[2022-09-10] MEDS: SPIRONOLACTONE 12.5MG PER 1/2 TABLET PO SCH (09:33)
[2022-09-10] MEDS: MECLIZINE 12.5 MG TAB PO SCH ×3 (09:33→21:41)
[2022-09-10] MEDS: VITAMIN D 1,000 INTERNATIONAL UNITS TABLET PO SCH (09:33)
[2022-09-10] MEDS: busPIRone 10 MG TAB PO SCH ×2 (09:33→21:41)
[2022-09-10] MEDS: PANTOPRAZOLE 40MG TAB (PROTONIX) PO SCH (09:33)
[2022-09-10] MEDS: LORATADINE 10 MG TAB PO SCH (09:33)
[2022-09-10] MEDS: METOPROLOL TART 25 MG TABLET PO SCH ×2 (09:34→21:42)
[2022-09-10] MEDS: ACETAMINOPHEN 500 MG TAB PO SCH ×3 (09:34→21:42)
[2022-09-10] MEDS: HEPARIN SOD (PORCINE) 5000UNITS/ML 1ML VIAL/SYRINGE SQ SCH ×2 (09:35→21:42)
[2022-09-10] MEDS: LIDOCAINE 5% (LIDODERM) PATCH TD SCH ×2 (09:35→21:43)
[2022-09-10 14:15] VITALS: BP 143/64
[2022-09-10 20:00] VITALS: BP 122/56
[2022-09-10] MEDS: SENNA 8.6 MG TAB (SENOKOT) PO SCH (21:00)
[2022-09-10] MEDS: ROSUVASTATIN 10 MG TAB (CRESTOR) PO SCH (21:41)
[2022-09-11 06:00] VITALS: BP 162/78
[2022-09-11] MEDS: oxyCODONE 5MG TAB PO SCH ×4 (06:16→17:45)
[2022-09-11] MEDS: TIOTROPIUM INHALER/CAPSULE (SPIRIVA) INH SCH (07:48)
[2022-09-11] MEDS: SYMBICORT 160/4.5MCG INHALER 6GM INH SCH ×2 (07:48→19:48)
[2022-09-11] MEDS: busPIRone 10 MG TAB PO SCH ×2 (08:33→20:20)
[2022-09-11] MEDS: MECLIZINE 12.5 MG TAB PO SCH ×3 (08:33→20:21)
[2022-09-11] MEDS: VITAMIN D 1,000 INTERNATIONAL UNITS TABLET PO SCH (08:33)
[2022-09-11] MEDS: SPIRONOLACTONE 12.5MG PER 1/2 TABLET PO SCH (08:33)
[2022-09-11] MEDS: LORATADINE 10 MG TAB PO SCH (08:33)
[2022-09-11] MEDS: DOCUSATE SODIUM 100MG CAPSULE PO SCH ×2 (08:33→20:22)
[2022-09-11] MEDS: PANTOPRAZOLE 40MG TAB (PROTONIX) PO SCH (08:33)
[2022-09-11] MEDS: ACETAMINOPHEN 500 MG TAB PO SCH ×3 (08:33→20:22)
[2022-09-11] MEDS: REMEDY PHYTOPLEX Z-GUARD PASTE 113GM TUBE (FROM STOREROOM PRODUCT) TOP SCH ×3 (08:34→20:23)
[2022-09-11] MEDS: METOPROLOL TART 25 MG TABLET PO SCH ×2 (08:34→20:21)
[2022-09-11] MEDS: HEPARIN SOD (PORCINE) 5000UNITS/ML 1ML VIAL/SYRINGE SQ SCH ×2 (08:34→20:21)
[2022-09-11 14:00] VITALS: BP 130/58
[2022-09-11 20:00] VITALS: BP 124/56
[2022-09-11] MEDS: ROSUVASTATIN 10 MG TAB (CRESTOR) PO SCH (20:21)
[2022-09-11] MEDS: SENNA 8.6 MG TAB (SENOKOT) PO SCH (20:22)
[2022-09-12 06:11] VITALS: BP 141/64
[2022-09-12] MEDS: oxyCODONE 5MG TAB PO SCH ×3 (06:19→17:25)
[2022-09-12] MEDS: SYMBICORT 160/4.5MCG INHALER 6GM INH SCH ×2 (07:49→20:54)
[2022-09-12] MEDS: TIOTROPIUM INHALER/CAPSULE (SPIRIVA) INH SCH (07:49)
[2022-09-12] MEDS: REMEDY PHYTOPLEX Z-GUARD PASTE 113GM TUBE (FROM STOREROOM PRODUCT) TOP SCH ×3 (09:00→20:57)
[2022-09-12] MEDS: VITAMIN D 1,000 INTERNATIONAL UNITS TABLET PO SCH (09:15)
[2022-09-12] MEDS: PANTOPRAZOLE 40MG TAB (PROTONIX) PO SCH (09:15)
[2022-09-12] MEDS: SPIRONOLACTONE 12.5MG PER 1/2 TABLET PO SCH (09:15)
[2022-09-12] MEDS: MECLIZINE 12.5 MG TAB PO SCH ×3 (09:15→20:55)
[2022-09-12] MEDS: busPIRone 10 MG TAB PO SCH ×2 (09:15→20:56)
[2022-09-12] MEDS: METOPROLOL TART 25 MG TABLET PO SCH ×2 (09:16→20:56)
[2022-09-12] MEDS: LORATADINE 10 MG TAB PO SCH (09:16)
[2022-09-12] MEDS: DOCUSATE SODIUM 100MG CAPSULE PO SCH ×2 (09:16→20:56)
[2022-09-12] MEDS: ACETAMINOPHEN 500 MG TAB PO SCH ×3 (09:16→20:56)
[2022-09-12] MEDS: LIDOCAINE 5% (LIDODERM) PATCH TD SCH (09:17)
[2022-09-12] MEDS: HEPARIN SOD (PORCINE) 5000UNITS/ML 1ML VIAL/SYRINGE SQ SCH ×2 (09:17→20:55)
[2022-09-12 14:00] VITALS: BP 134/61
[2022-09-12 20:04] VITALS: BP 134/62
[2022-09-12] MEDS: SENNA 8.6 MG TAB (SENOKOT) PO SCH (20:55)
[2022-09-12] MEDS: ROSUVASTATIN 10 MG TAB (CRESTOR) PO SCH (20:56)
[2022-09-13 06:00] VITALS: BP 130/60
[2022-09-13 06:23] LABS: BASO % 0.3 % (0.0-1.0); EOS # 0.1 10^3/uL (0.0-0.5); EOS % 1.6 % (0.0-3.0); HEMATOCRIT 29.2 % (36.0-47.0); HEMOGLOBIN 9.3 g/dl (12.0-15.5); LYMPH # 1.6 10^3/uL (1.5-5.0); MEAN CORPUSCULAR HEMOGLOBIN 32.3 pg (27.0-33.0); MEAN CORPUSCULAR HGB CONC 31.8 g/dl (32.0-36.5); MEAN CORPUSCULAR VOLUME 101.4 fl (80.0-96.0); MONO # 0.5 10^3/uL (0.0-0.8); MONO % 7.5 % (2.0-8.0); NEUTROPHILS # 3.9 10^3/uL (1.5-8.5); NEUTROPHILS % 63.9 % (36.0-66.0); PLATELET COUNT, AUTOMATED 283 10^3/uL (150-450); RED BLOOD COUNT 2.88 10^6/uL (4.00-5.40); WHITE BLOOD COUNT 6.2 10^3/uL (4.0-10.0)
[2022-09-13] MEDS: oxyCODONE 5MG TAB PO SCH ×2 (06:45→12:18)
[2022-09-13] MEDS ORDERED: MECL-86 PO (07:50)
[2022-09-13] MEDS ORDERED: CRES10TA PO (07:50)
[2022-09-13] MEDS ORDERED: METO1TAB87 PO (07:50)
[2022-09-13] MEDS ORDERED: TIOT18INH INH (07:50)
[2022-09-13] MEDS ORDERED: XARE20TA PO (07:50)
[2022-09-13] MEDS ORDERED: SYMB16INH INH (07:50)
[2022-09-13] MEDS ORDERED: BUSP10TA PO (07:50)
[2022-09-13] MEDS ORDERED: ALDA25TA2 PO (07:50)
[2022-09-13] MEDS ORDERED: OXYC-517 PO (07:50)
[2022-09-13 08:15] VITALS: BP 130/60
[2022-09-13] MEDS: SPIRONOLACTONE 12.5MG PER 1/2 TABLET PO SCH (08:15)
[2022-09-13] MEDS: busPIRone 10 MG TAB PO SCH (08:15)
[2022-09-13] MEDS: MECLIZINE 12.5 MG TAB PO SCH (08:15)
[2022-09-13] MEDS: VITAMIN D 1,000 INTERNATIONAL UNITS TABLET PO SCH (08:15)
[2022-09-13] MEDS: PANTOPRAZOLE 40MG TAB (PROTONIX) PO SCH (08:15)
[2022-09-13] MEDS: METOPROLOL TART 25 MG TABLET PO SCH (08:15)
[2022-09-13] MEDS: DOCUSATE SODIUM 100MG CAPSULE PO SCH (08:15)
[2022-09-13] MEDS: LORATADINE 10 MG TAB PO SCH (08:15)
[2022-09-13] MEDS: LIDOCAINE 5% (LIDODERM) PATCH TD SCH (08:16)
[2022-09-13] MEDS: ACETAMINOPHEN 500 MG TAB PO SCH (08:16)
[2022-09-13] MEDS: REMEDY PHYTOPLEX Z-GUARD PASTE 113GM TUBE (FROM STOREROOM PRODUCT) TOP SCH (08:16)
[2022-09-13] MEDS: TIOTROPIUM INHALER/CAPSULE (SPIRIVA) INH SCH (08:55)
[2022-09-13] MEDS: SYMBICORT 160/4.5MCG INHALER 6GM INH SCH (08:55)
[2022-09-13] MEDS ORDERED: RIVAROXABAN 20MG TAB (XARELTO) PO SCH (18:00)
== END 2022-09-13 13:08 | disposition home health service (06) | DRG 554 ==
LOC: M PM&R 13:15
PROVIDERS: ADMIT Physical Medicine & Rehabilitation; ATTEND Physical Medicine & Rehabilitation
DX: M25.061 Hemarthrosis, right knee (principal); E22.2 Syndrome of inappropriate secretion of antidiuretic hormone; E87.1 Hypo-osmolality and hyponatremia; I48.91 Unspecified atrial fibrillation; I10 Essential (primary) hypertension; Z74.09 Other reduced mobility; J44.9 Chronic obstructive pulmonary disease, unspecified; F39 Unspecified mood [affective] disorder; M17.11 Unilateral primary osteoarthritis, right knee; M25.561 Pain in right knee; D64.9 Anemia, unspecified; Z79.01 Long term (current) use of anticoagulants; Z79.899 Other long term (current) drug therapy; Z88.2 Allergy status to sulfonamides; E78.5 Hyperlipidemia, unspecified

== ENCOUNTER 2023-03-04 09:07 | Emergency (ER) | payer MEDICARE, MEDICAID ==
[~2023-03-04] VITALS: Ht 162.6 cm; Wt 65.9 kg
[~2023-03-04 09:07] MED LIST changes: +ALDA25TA2 PO; +OXYC-517 PO; +SENN-111 PO; -SENN18TA PO; +TIOT18INH INH
[2023-03-04] MEDS ORDERED: SPIR-10 (09:22)
[2023-03-04] MEDS ORDERED: MECLIZINE 25 MG TABLET PO ONE (11:55)
[2023-03-04] MEDS ORDERED: NS 1,000 ML IV ONE (12:00)
[2023-03-04 12:30] LABS: BASO % 0.3 % (0.0-1.0); EOS # 0.1 10^3/uL (0.0-0.5); EOS % 0.8 % (0.0-3.0); HEMATOCRIT 41.4 % (36.0-47.0); HEMOGLOBIN 13.6 g/dl (12.0-15.5); LYMPH # 1.9 10^3/uL (1.5-5.0); LYMPH % 19.1 % (24.0-44.0); MEAN CORPUSCULAR HEMOGLOBIN 31.4 pg (27.0-33.0); MEAN CORPUSCULAR HGB CONC 32.9 g/dl (32.0-36.5); MEAN CORPUSCULAR VOLUME 95.6 fl (80.0-96.0); MONO # 0.6 10^3/uL (0.0-0.8); MONO % 5.8 % (2.0-8.0); NEUTROPHILS # 7.4 10^3/uL (1.5-8.5); NEUTROPHILS % 73.4 % (36.0-66.0); PLATELET COUNT, AUTOMATED 269 10^3/uL (150-450); RED BLOOD COUNT 4.33 10^6/uL (4.00-5.40)
[2023-03-04 12:48] LABS: INR 1.03; PARTIAL THROMBOPLASTIN TIME 35.3 SECONDS (24.8-34.2); PROTHROMBIN TIME 13.7 SECONDS (12.5-14.5)
[2023-03-04 12:50] LABS: CK-MB VALUE MASS 1.2 NG/ML (<3.6); MAGNESIUM LEVEL 2.1 MG/DL (1.8-2.4)
[2023-03-04 12:51] LABS: MB/CK RELATIVE INDEX 1.2 (< OR =4)
[2023-03-04 12:53] LABS: FREE T4 0.96 NG/DL (0.89-1.76)
[2023-03-04 12:54] LABS: THYROID STIMULATING HORMONE 4.227 uIU/ML (0.55-4.78)
[2023-03-04 14:52] VITALS: TEMP 97.6; O2SAT 98
[2023-03-04 15:18] VITALS: BP 173/72
== END 2023-03-04 15:10 | disposition home or self-care (01) ==
LOC: M ED 09:07
DX: H81.4 Vertigo of central origin (principal); I10 Essential (primary) hypertension; R00.1 Bradycardia, unspecified; J44.9 Chronic obstructive pulmonary disease, unspecified; M54.50 Low back pain, unspecified; Z86.79 Personal history of other diseases of the circulatory system; Z88.2 Allergy status to sulfonamides; Z79.811 Long term (current) use of aromatase inhibitors; Z79.899 Other long term (current) drug therapy

== ENCOUNTER → 2024-11-20 | Outpatient (CLI) | payer MEDICARE, MEDICAID ==
[~2024-11-20] MED LIST changes: +DICL100G10 TOP; -DICL1GEL3 TOP; +DOXY-441; -DOXY-443; +MECL-209 PO; -MECL1TAB31 PO; +ONDA-282 PO; -ONDA4TAB6 PO; -SENN-111 PO; +SENN-165 PO; +SPIR-10
[2024-11-20 12:36] LABS: HEMATOCRIT 37.5 % (36.0-47.0); HEMOGLOBIN 12.3 g/dl (12.0-15.5); MEAN CORPUSCULAR HGB CONC 32.8 g/dl (32.0-36.5); MEAN CORPUSCULAR VOLUME 97.7 fl (80.0-96.0); PLATELET COUNT, AUTOMATED 323 10^3/uL (150-450); RED BLOOD COUNT 3.84 10^6/uL (4.00-5.40); WHITE BLOOD COUNT 7.4 10^3/uL (4.0-10.0)
[2024-11-20 13:13] LABS: BLOOD UREA NITROGEN 13 MG/DL (9-23); CARBON DIOXIDE LEVEL 26 MMOL/L (20-31); CHLORIDE LEVEL 101 MMOL/L (98-107); CREATININE FOR GFR 0.93 MG/DL (0.55-1.30); GLOMERULAR FILTRATION RATE > 60.0 (>32); GLUCOSE, FASTING 102 MG/DL (74-106); SODIUM LEVEL 133 MMOL/L (136-145)
== END ==
LOC: M WUC 08:08
PROVIDERS: ATTEND Internal Medicine Cardiovascular Disease
DX: R06.02 Shortness of breath (principal)

== ENCOUNTER 2025-04-24 03:30 | Inpatient (IN) | payer MEDICARE, MEDICAID ==
[~2025-04-24] VITALS: Ht 165.1 cm; Wt 79.1 kg
[~2025-04-24 03:30] MED LIST changes: -IBUP-1022 PO; +IBUP600T42 PO; -SPIR-10; +SPIR-10 PO
[2025-04-24] MEDS: ACETAMINOPHEN 500 MG TAB PO ONE (08:15)
[2025-04-24] MEDS: MORPHINE 4 MG/ML 1 ML VIAL IM PRN (09:58)
[2025-04-24] MEDS ORDERED: NALOXONE INJ 0.4 MG/1 ML VIAL IV STA (12:05)
[2025-04-24] MEDS ORDERED: METOPROLOL TART 25 MG TABLET PO SCH (12:15)
[2025-04-24] MEDS ORDERED: AMIO200T54 PO (12:19)
[2025-04-24] MEDS ORDERED: LEVO50TA5 PO (12:19)
[2025-04-24] MEDS ORDERED: SPIR1CAP INH (12:19)
[2025-04-24] MEDS ORDERED: ROSU10TA61 PO (12:19)
[2025-04-24] MEDS ORDERED: XARE20TA PO (12:19)
[2025-04-24] MEDS ORDERED: BUSP10TA PO (12:19)
[2025-04-24] MEDS ORDERED: ACET-897 PO (12:20)
[2025-04-24] MEDS ORDERED: META28.32 PO (12:20)
[2025-04-24] MEDS ORDERED: HOME MED LIST COMPLETE! XX SCH (12:20)
[2025-04-24] MEDS ORDERED: NALOXONE INJ 0.4 MG/1 ML VIAL IV PRN (12:45)
[2025-04-24] MEDS: TIOTROPIUM BROM 2.5MCG/ACTUATION 4GM INH INH SCH (13:01)
[2025-04-24] MEDS: SYMBICORT 160/4.5MCG INHALER 6GM INH SCH (13:01)
[2025-04-24 13:08] LABS: PLATELET COUNT, AUTOMATED 346 10^3/uL (150-450)
[2025-04-24 13:21] LABS: ERYTHROCYTE SEDIMENTATION RATE 18 mm/hr (0-30)
[2025-04-24 13:27] LABS: ESTIMATED AVERAGE GLUCOSE 117.0 MG/DL (60-110)
[2025-04-24 13:42] LABS: ALT/SGPT 32 U/L (7.0-40); AST/SGOT 31 U/L (<34); C REACTIVE PROTEIN QUANTITATIV < 0.50 MG/DL (<1.0); CALCIUM LEVEL 9.5 MG/DL (8.3-10.6); CARBON DIOXIDE LEVEL 24 MMOL/L (20-31); CHLORIDE LEVEL 100 MMOL/L (98-107); CREATININE FOR GFR 0.77 MG/DL (0.55-1.30); GLOMERULAR FILTRATION RATE 75.6 (>32); POTASSIUM SERUM 4.7 MMOL/L (3.5-5.1); SODIUM LEVEL 136 MMOL/L (136-145)
[2025-04-24] MEDS: VITAMIN D 1,000 INTERNATIONAL UNITS TABLET PO SCH (14:02)
[2025-04-24] MEDS: LORATADINE 10 MG TAB PO SCH (14:03)
[2025-04-24] MEDS: PERCOCET 5MG/325MG TAB PO ONE (14:03)
[2025-04-24 14:25] VITALS: BP 186/84; TEMP 98.1; O2SAT 96
[2025-04-24] MEDS: DICLOFENAC EPOLAMINE 1.3% PATCH TOP SCH (14:39)
[2025-04-24] MEDS: KETOROLAC 30 MG/ML 1 ML VIAL IV ONE (14:39)
[2025-04-24] MEDS: RIVAROXABAN 20MG TAB PO SCH (17:13)
[2025-04-24 20:53] VITALS: BP 146/65; TEMP 97.2; O2SAT 93
[2025-04-24] MEDS: ROSUVASTATIN 10 MG TAB PO SCH (22:03)
[2025-04-24] MEDS: PERCOCET 5MG/325MG TAB PO PRN (22:04)
[2025-04-24] MEDS: AMIODARONE 200 MG TAB PO SCH (23:30)
[2025-04-24] MEDS: MIRALAX *UNIT DOSE* 17 GM PACKET PO SCH (23:31)
[2025-04-24] MEDS: SENNA 8.6 MG TAB PO SCH (23:31)
[2025-04-24] MEDS: BISACODYL 10 MG SUPP PR ONE (23:35)
[2025-04-25 03:31] VITALS: BP 141/62; TEMP 97.5; O2SAT 92
[2025-04-25] MEDS ORDERED: BISACODYL 10 MG SUPP PR PRN (07:50)
[2025-04-25] MEDS: BISACODYL 10 MG SUPP PR ONE (08:28)
[2025-04-25] MEDS: SENNOSIDES/DOCUSATE SODIUM 8.6 MG/50MG TAB PO ONE (08:28)
[2025-04-25] MEDS: LACTULOSE 20 GM/30 ML SYRUP UDC PO ONE (08:28)
[2025-04-25] MEDS: MIRALAX *UNIT DOSE* 17 GM PACKET PO SCH (08:29)
[2025-04-25] MEDS: ACETAMINOPHEN 500 MG TAB PO ONE (08:30)
[2025-04-25 08:41] VITALS: BP 157/66
[2025-04-25] MEDS: amLODIPine 10 MG TAB PO ONE (08:41)
[2025-04-25] MEDS: LIDOCAINE 5% OINT 30 GM TUBE TOP SCH (08:56)
[2025-04-25] MEDS: KETOROLAC 30 MG/ML 1 ML VIAL IV ONE (10:44)
[2025-04-25] MEDS: MORPHINE SULFATE TAB IMM. REL. 15 MG PO ONE (10:44)
[2025-04-25 12:00] VITALS: BP 128/63; TEMP 97.9; O2SAT 98
[2025-04-25] MEDS: HYDROMORPHONE HCL 0.5 MG/0.5 ML SYRINGE IV ONE ×2 (12:09→17:48)
[2025-04-25] MEDS: MOM 30 ML SUSPENSION UDC PO PRN (16:44)
[2025-04-25] MEDS: SCOPOLAMINE 1MG TRANSDERMAL PATCH TOP SCH (17:50)
[2025-04-25] MEDS: ACETAMINOPHEN 500 MG TAB PO SCH (17:50)
[2025-04-25] MEDS: MORPHINE SULFATE TAB IMM. REL. 30 MG PO SCH (17:56)
[2025-04-25] MEDS ORDERED: MORPHINE SULFATE TAB IMM. REL. 15 MG PO SCH (18:00)
[2025-04-25 20:22] VITALS: BP 128/61; TEMP 97.7; O2SAT 98
[2025-04-25] MEDS: BISACODYL 10 MG SUPP PR SCH (21:00)
[2025-04-26 04:22] VITALS: BP 128/60; TEMP 97.7; O2SAT 96
[2025-04-26] MEDS: KETOROLAC 30 MG/ML 1 ML VIAL IV ONE (08:40)
[2025-04-26] MEDS: MORPHINE SULFATE TAB IMM. REL. 30 MG PO SCH (08:43)
[2025-04-26] MEDS ORDERED: predniSONE 20 MG TAB PO SCH (09:00)
[2025-04-26 09:18] LABS: CALCIUM LEVEL 8.2 MG/DL (8.3-10.6); CARBON DIOXIDE LEVEL 22.0 MMOL/L (20-31); CHLORIDE LEVEL 92.0 MMOL/L (98-107); CREATININE FOR GFR 0.93 MG/DL (0.55-1.30); GLOMERULAR FILTRATION RATE 60.2 (>32); POTASSIUM SERUM 5.7 MMOL/L (3.5-5.1); SODIUM LEVEL 123.0 MMOL/L (136-145)
[2025-04-26] MEDS: HYDROMORPHONE HCL 0.5 MG/0.5 ML SYRINGE IV ONE (09:59)
[2025-04-26 10:46] LABS: BASO # 0.0 10^3/uL (0.0-0.2); BASO % 0.2 % (0.0-1.0); EOS # 0.0 10^3/uL (0.0-0.5); EOS % 0.0 % (0.0-3.0); LYMPH # 0.6 10^3/uL (1.5-5.0); LYMPH % 2.4 % (24.0-44.0); MONO # 0.7 10^3/uL (0.0-0.8); MONO % 2.8 % (2.0-8.0); NEUTROPHILS # 23.5 10^3/uL (1.5-8.5); NEUTROPHILS % 93.3 % (36.0-66.0); PLATELET COUNT, AUTOMATED 330 10^3/uL (150-450)
[2025-04-26 10:50] LABS: ERYTHROCYTE SEDIMENTATION RATE 5 mm/hr (0-30)
[2025-04-26] MEDS: ONDANSETRON 4MG 2ML VIAL IV ONE (10:53)
[2025-04-26 10:59] LABS: KETONE, URINE AUTO RFX NEGATIVE (NEGATIVE); LEUKOCYTE ESTERASE UR AUTO RFX NEGATIVE (NEGATIVE); MUCUS, URINE RFX SMALL (NEGATIVE); NITRITE, URINE AUTO RFX NEGATIVE (NEGATIVE); RBC, URINE AUTO RFX 4 /HPF (0-3); SQUAM EPITHELIAL CELL UR AURFX 0 /HPF (0-6); WBC, URINE AUTO RFX 0 /HPF (0-3)
[2025-04-26 11:16] LABS: SODIUM,RANDOM URINE 11 MMOL/L
[2025-04-26 11:23] LABS: C REACTIVE PROTEIN QUANTITATIV < 0.50 MG/DL (<1.0); CALCIUM LEVEL 7.6 MG/DL (8.3-10.6); CARBON DIOXIDE LEVEL 19 MMOL/L (20-31); CHLORIDE LEVEL 90 MMOL/L (98-107); CREATININE FOR GFR 1.13 MG/DL (0.55-1.30); GLOMERULAR FILTRATION RATE 47.7 (>32); POTASSIUM SERUM 5.7 MMOL/L (3.5-5.1); SODIUM LEVEL 121 MMOL/L (136-145)
[2025-04-26 11:49] LABS: OSMOLALITY SERUM 269 MOSM/KG (280-301)
[2025-04-26 12:00] VITALS: BP 117/48; TEMP 97.7; O2SAT 92
[2025-04-26] MEDS: NS 500 ML IV ONE (12:07)
[2025-04-26] MEDS: ACETAMINOPHEN *IV* 1,000 MG in IV 1 EA IV ONE (13:49)
[2025-04-26 15:54] LABS: CALCIUM LEVEL 7.4 MG/DL (8.3-10.6); CARBON DIOXIDE LEVEL 24.0 MMOL/L (20-31); CHLORIDE LEVEL 90.0 MMOL/L (98-107); CREATININE FOR GFR 1.3 MG/DL (0.55-1.30); GLOMERULAR FILTRATION RATE 40.3 (>32); POTASSIUM SERUM 6.0 MMOL/L (3.5-5.1); SODIUM LEVEL 122.0 MMOL/L (136-145)
[2025-04-26 16:00] VITALS: BP 146/63; TEMP 97; O2SAT 90
[2025-04-26] MEDS: PATIROMER SORBITEX CALCIUM 8.4GM POWDER PACKET PO ONE (16:55)
[2025-04-26] MEDS: NS (Normal Saline) 0.9% 1,000 ML IV ONE (16:55)
[2025-04-26] MEDS: ONDANSETRON 4MG 2ML VIAL IV PRN (17:17)
[2025-04-26 19:48] VITALS: BP 116/55; TEMP 97.4; O2SAT 90
[2025-04-26 21:40] LABS: CALCIUM LEVEL 6.9 MG/DL (8.3-10.6); CARBON DIOXIDE LEVEL 20.0 MMOL/L (20-31); CHLORIDE LEVEL 91.0 MMOL/L (98-107); CREATININE FOR GFR 1.24 MG/DL (0.55-1.30); GLOMERULAR FILTRATION RATE 42.7 (>32); POTASSIUM SERUM 6.0 MMOL/L (3.5-5.1); SODIUM LEVEL 120.0 MMOL/L (136-145)
[2025-04-27] VITALS (7 sets, daily range): BP systolic 116–156; BP diastolic 56–68; TEMP 97.2–98.6; O2SAT 89–95
[2025-04-27 03:52] LABS: CALCIUM LEVEL 7.2 MG/DL (8.3-10.6); CARBON DIOXIDE LEVEL 23.0 MMOL/L (20-31); CHLORIDE LEVEL 92.0 MMOL/L (98-107); CREATININE FOR GFR 1.27 MG/DL (0.55-1.30); GLOMERULAR FILTRATION RATE 41.4 (>32); POTASSIUM SERUM 6.1 MMOL/L (3.5-5.1); SODIUM LEVEL 121.0 MMOL/L (136-145)
[2025-04-27] MEDS: HumuLIN R (REGULAR) INSULIN (NovoLIN R) **100 U/ML** PER UNIT IV STA (04:08)
[2025-04-27] MEDS: DEXTROSE 50% 50 ML SYRINGE IV STA (04:09)
[2025-04-27] MEDS: CALCIUM GLUCONATE 1,000 MG in DEXTROSE 5% (D5W) MINI-BAG PLU 100 ML IV ONE ×2 (04:58→09:39)
[2025-04-27] MEDS: ONDANSETRON 4MG 2ML VIAL IV ONE (08:44)
[2025-04-27 08:54] LABS: C REACTIVE PROTEIN QUANTITATIV 1.51 MG/DL (<1.0)
[2025-04-27] MEDS: PATIROMER SORBITEX CALCIUM 8.4GM POWDER PACKET PO ONE (09:35)
[2025-04-27] MEDS: DOXYCYCLINE HYCLATE 100 MG TABLET PO SCH (09:36)
[2025-04-27] MEDS: CEFDINIR 300 MG CAP PO SCH (09:37)
[2025-04-27 12:04] LABS: CALCIUM LEVEL 8.3 MG/DL (8.3-10.6); CARBON DIOXIDE LEVEL 20.0 MMOL/L (20-31); CHLORIDE LEVEL 89.0 MMOL/L (98-107); CREATININE FOR GFR 1.3 MG/DL (0.55-1.30); GLOMERULAR FILTRATION RATE 40.3 (>32); POTASSIUM SERUM 5.2 MMOL/L (3.5-5.1); SODIUM LEVEL 120.0 MMOL/L (136-145)
[2025-04-27] MEDS: PATIROMER SORBITEX CALCIUM 8.4GM POWDER PACKET PO SCH (12:18)
[2025-04-27 13:24] LABS: SODIUM,RANDOM URINE 11 MMOL/L
[2025-04-27] MEDS: NS (Normal Saline) 0.9% 1,000 ML IV SCH (14:37)
[2025-04-27] MEDS: BISACODYL 10 MG SUPP PR ONE (14:42)
[2025-04-27] MEDS: SODIUM CHLORIDE 1 GM TAB PO SCH (15:22)
[2025-04-27 15:54] LABS: CALCIUM LEVEL 8.2 MG/DL (8.3-10.6); CARBON DIOXIDE LEVEL 24.0 MMOL/L (20-31); CHLORIDE LEVEL 90.0 MMOL/L (98-107); CREATININE FOR GFR 1.28 MG/DL (0.55-1.30); GLOMERULAR FILTRATION RATE 41.1 (>32); POTASSIUM SERUM 5.3 MMOL/L (3.5-5.1); SODIUM LEVEL 122.0 MMOL/L (136-145)
[2025-04-27] MEDS: BISACODYL 10 MG SUPP PR SCH (21:00)
[2025-04-27] MEDS: LACTULOSE 20 GM/30 ML SYRUP UDC PO PRN (21:01)
[2025-04-27] MEDS: SENNOSIDES/DOCUSATE SODIUM 8.6 MG/50MG TAB PO PRN (21:02)
[2025-04-27 21:03] LABS: CALCIUM LEVEL 8.0 MG/DL (8.3-10.6); CARBON DIOXIDE LEVEL 24.0 MMOL/L (20-31); CHLORIDE LEVEL 91.0 MMOL/L (98-107); CREATININE FOR GFR 1.24 MG/DL (0.55-1.30); GLOMERULAR FILTRATION RATE 42.7 (>32); PHOSPHORUS LEVEL 4.1 MG/DL (2.4-5.1); POTASSIUM SERUM 5.5 MMOL/L (3.5-5.1); SODIUM LEVEL 122.0 MMOL/L (136-145)
[2025-04-28] VITALS (15 sets, daily range): BP systolic 106–145; BP diastolic 44–63; TEMP 97.6–101.2; O2SAT 88–98
[2025-04-28 03:29] LABS: CALCIUM LEVEL 7.4 MG/DL (8.3-10.6); CARBON DIOXIDE LEVEL 24.0 MMOL/L (20-31); CHLORIDE LEVEL 93.0 MMOL/L (98-107); CREATININE FOR GFR 1.12 MG/DL (0.55-1.30); GLOMERULAR FILTRATION RATE 48.2 (>32); POTASSIUM SERUM 5.4 MMOL/L (3.5-5.1); SODIUM LEVEL 123.0 MMOL/L (136-145)
[2025-04-28] MEDS: PATIROMER SORBITEX CALCIUM 8.4GM POWDER PACKET PO ONE (08:21)
[2025-04-28] MEDS: DEXTROSE 50% 50 ML SYRINGE IV STA (08:23)
[2025-04-28] MEDS: CALCIUM GLUCONATE 1,000 MG in DEXTROSE 5% (D5W) MINI-BAG PLU 100 ML IV ONE (08:28)
[2025-04-28] MEDS: HumuLIN R (REGULAR) INSULIN (NovoLIN R) **100 U/ML** PER UNIT SC STA (08:30)
[2025-04-28 10:11] LABS: CALCIUM LEVEL 7.6 MG/DL (8.3-10.6); CARBON DIOXIDE LEVEL 23.0 MMOL/L (20-31); CHLORIDE LEVEL 94.0 MMOL/L (98-107); CREATININE FOR GFR 1.1 MG/DL (0.55-1.30); GLOMERULAR FILTRATION RATE 49.2 (>32); POTASSIUM SERUM 5.0 MMOL/L (3.5-5.1); SODIUM LEVEL 124.0 MMOL/L (136-145)
[2025-04-28 12:33] LABS: ABG BASE EXCESS -0.3 (-2.0-2.0); ABG HCO3 23.2 MMOL/L (22.0-26.0); ABG O2 SATURATION 91.9 % (95.0-99.0); ABG PARTIAL PRESSURE CO2 32.3 mmHg (35.0-45.0); ABG PARTIAL PRESSURE O2 61.6 mmHg (75.0-100.0); ABG STANDARD HCO3 24.1 MMOL/L. (22.0-26.0); ABG TOTAL CO2 24.2 MMOL/L (23.0-31.0); ABG pH (ARTERIAL) 7.474 UNITS (7.350-7.450)
[2025-04-28 12:49] LABS: CALCIUM LEVEL 7.7 MG/DL (8.3-10.6); CARBON DIOXIDE LEVEL 24.0 MMOL/L (20-31); CHLORIDE LEVEL 94.0 MMOL/L (98-107); CREATININE FOR GFR 1.08 MG/DL (0.55-1.30); GLOMERULAR FILTRATION RATE 50.3 (>32); POTASSIUM SERUM 5.1 MMOL/L (3.5-5.1); SODIUM LEVEL 125.0 MMOL/L (136-145)
[2025-04-28 16:28] LABS: CALCIUM LEVEL 7.6 MG/DL (8.3-10.6); CARBON DIOXIDE LEVEL 23.0 MMOL/L (20-31); CHLORIDE LEVEL 95.0 MMOL/L (98-107); CREATININE FOR GFR 1.04 MG/DL (0.55-1.30); GLOMERULAR FILTRATION RATE 52.7 (>32); POTASSIUM SERUM 5.3 MMOL/L (3.5-5.1); SODIUM LEVEL 126.0 MMOL/L (136-145)
[2025-04-28 19:17] LABS: INR 2.23
[2025-04-28] MEDS ORDERED: ISOVUE-370 76% 100 ML VIAL As Ordered ONE (19:55)
[2025-04-28] MEDS: NS 500 ML IV ONE (20:07)
[2025-04-28 21:53] LABS: BASO # 0.0 10^3/uL (0.0-0.2); BASO % 0.1 % (0.0-1.0); EOS # 0.0 10^3/uL (0.0-0.5); EOS % 0.1 % (0.0-3.0); LYMPH # 1.3 10^3/uL (1.5-5.0); LYMPH % 10.4 % (24.0-44.0); MONO # 1.4 10^3/uL (0.0-0.8); MONO % 11.5 % (2.0-8.0); NEUTROPHILS # 9.6 10^3/uL (1.5-8.5); NEUTROPHILS % 76.1 % (36.0-66.0); PLATELET COUNT, AUTOMATED 224 10^3/uL (150-450)
[2025-04-28 22:21] LABS: CALCIUM LEVEL 7.2 MG/DL (8.3-10.6); CARBON DIOXIDE LEVEL 22.0 MMOL/L (20-31); CHLORIDE LEVEL 96.0 MMOL/L (98-107); CK-MB VALUE MASS 5.5 NG/ML (<3.6); CPK CREATINE PHOSPHOKINASE 228.0 U/L (34-145); CREATININE FOR GFR 1.03 MG/DL (0.55-1.30); GLOMERULAR FILTRATION RATE 53.3 (>32); MB/CK RELATIVE INDEX 2.41 (< OR =4); POTASSIUM SERUM 5.2 MMOL/L (3.5-5.1); SODIUM LEVEL 126.0 MMOL/L (136-145)
[2025-04-29] VITALS (12 sets, daily range): BP systolic 110–136; BP diastolic 54–62; TEMP 97.2–99.1; O2SAT 94–99
[2025-04-29 03:38] LABS: BASO # 0.0 10^3/uL (0.0-0.2); BASO % 0.2 % (0.0-1.0); EOS # 0.0 10^3/uL (0.0-0.5); EOS % 0.1 % (0.0-3.0); LYMPH # 1.2 10^3/uL (1.5-5.0); LYMPH % 9.5 % (24.0-44.0); MONO # 1.3 10^3/uL (0.0-0.8); MONO % 10.1 % (2.0-8.0); NEUTROPHILS # 9.6 10^3/uL (1.5-8.5); NEUTROPHILS % 77.8 % (36.0-66.0); PLATELET COUNT, AUTOMATED 188 10^3/uL (150-450)
[2025-04-29 04:02] LABS: CALCIUM LEVEL 7.3 MG/DL (8.3-10.6); CARBON DIOXIDE LEVEL 23.0 MMOL/L (20-31); CHLORIDE LEVEL 97.0 MMOL/L (98-107); CREATININE FOR GFR 0.98 MG/DL (0.55-1.30); GLOMERULAR FILTRATION RATE 56.6 (>32); POTASSIUM SERUM 4.7 MMOL/L (3.5-5.1); SODIUM LEVEL 128.0 MMOL/L (136-145)
[2025-04-29] MEDS ORDERED: SODIUM CHLORIDE 0.9% INJ 10 ML SYR IV PRN (11:35)
[2025-04-29] MEDS: NEOSPORIN OINT 0.9 GM PKT TOP ONE (13:05)
[2025-04-29] MEDS: SODIUM CHLORIDE 0.9% INJ 10 ML SYR IV SCH (18:26)
[2025-04-29 22:21] LABS: CALCIUM LEVEL 7.6 MG/DL (8.3-10.6); CARBON DIOXIDE LEVEL 21.0 MMOL/L (20-31); CHLORIDE LEVEL 103.0 MMOL/L (98-107); CREATININE FOR GFR 0.85 MG/DL (0.55-1.30); GLOMERULAR FILTRATION RATE 67.1 (>32); POTASSIUM SERUM 4.4 MMOL/L (3.5-5.1); SODIUM LEVEL 133.0 MMOL/L (136-145)
[2025-04-30] VITALS: BP 115/58; TEMP 98.5; O2SAT 97
[2025-04-30 03:11] VITALS: BP 142/64; TEMP 97.6; O2SAT 96
[2025-04-30 03:55] LABS: BASO # 0.0 10^3/uL (0.0-0.2); BASO % 0.2 % (0.0-1.0); EOS # 0.0 10^3/uL (0.0-0.5); EOS % 0.0 % (0.0-3.0); LYMPH # 1.1 10^3/uL (1.5-5.0); LYMPH % 7.0 % (24.0-44.0); MONO # 1.4 10^3/uL (0.0-0.8); MONO % 9.5 % (2.0-8.0); NEUTROPHILS # 11.9 10^3/uL (1.5-8.5); NEUTROPHILS % 78.7 % (36.0-66.0); PLATELET COUNT, AUTOMATED 201 10^3/uL (150-450)
[2025-04-30 04:17] LABS: CALCIUM LEVEL 7.1 MG/DL (8.3-10.6); CARBON DIOXIDE LEVEL 22.0 MMOL/L (20-31); CHLORIDE LEVEL 105.0 MMOL/L (98-107); CREATININE FOR GFR 0.85 MG/DL (0.55-1.30); GLOMERULAR FILTRATION RATE 67.1 (>32); POTASSIUM SERUM 4.5 MMOL/L (3.5-5.1); SODIUM LEVEL 135.0 MMOL/L (136-145)
[2025-04-30 07:47] VITALS: BP 125/56; TEMP 97.8; O2SAT 97
[2025-04-30 07:56] LABS: C REACTIVE PROTEIN QUANTITATIV 8.21 MG/DL (<1.0)
[2025-04-30 07:57] LABS: ERYTHROCYTE SEDIMENTATION RATE 13 mm/hr (0-30)
[2025-04-30 15:11] VITALS: BP 129/66; TEMP 98.2; O2SAT 94
[2025-04-30 19:48] VITALS: BP 147/67; TEMP 97.8; O2SAT 96
[2025-04-30] MEDS: MORPHINE SULFATE TAB IMM. REL. 30 MG PO PRN (20:55)
[2025-05-01 04:32] VITALS: BP 136/61; TEMP 98; O2SAT 96
[2025-05-01 05:55] LABS: PLATELET COUNT, AUTOMATED 261 10^3/uL (150-450)
[2025-05-01 06:19] LABS: CALCIUM LEVEL 7.4 MG/DL (8.3-10.6); CARBON DIOXIDE LEVEL 26.0 MMOL/L (20-31); CHLORIDE LEVEL 104.0 MMOL/L (98-107); CREATININE FOR GFR 0.78 MG/DL (0.55-1.30); GLOMERULAR FILTRATION RATE 74.4 (>32); POTASSIUM SERUM 3.9 MMOL/L (3.5-5.1); SODIUM LEVEL 138.0 MMOL/L (136-145)
[2025-05-01 06:28] LABS: ATYPICAL LYMPH 1 % (0-5); LYMPHOCYTES 14 % (16-44); METAMYELOCYTES 1 % (0-0); MONOCYTES 8 % (0-5); NEUTROPHILS 75 % (28-66)
[2025-05-01 08:44] VITALS: BP 126/61; TEMP 98.1; O2SAT 94
[2025-05-01] MEDS ORDERED: MORPHINE SULFATE TAB IMM. REL. 30 MG PO PRN (13:30)
[2025-05-01 16:09] VITALS: BP 122/69; TEMP 97.9; O2SAT 98
[2025-05-01] MEDS: MORPHINE SULFATE TAB IMM. REL. 15 MG PO SCH (18:08)
[2025-05-01 19:58] VITALS: BP 134/60; TEMP 97.5; O2SAT 95
[2025-05-02 04:43] VITALS: BP 125/62; TEMP 97.5; O2SAT 97
[2025-05-02 08:00] VITALS: BP 117/52; TEMP 98.8; O2SAT 94
[2025-05-02] MEDS ORDERED: COLA100C5 PO (11:55)
[2025-05-02] MEDS ORDERED: FERR325T3 PO (11:55)
[2025-05-02] MEDS ORDERED: MIRA3350 PO (11:55)
[2025-05-02] MEDS ORDERED: MORP15TA2 PO (11:55)
[2025-05-02] MEDS ORDERED: MORP-137 PO (11:55)
[2025-05-02] MEDS ORDERED: TAMS-18 PO (11:57)
[2025-05-02 12:14] VITALS: O2SAT 94
== END 2025-05-02 14:13 | DRG 553 ==
LOC: M ED 03:30 → M ED INP 03:31 → M MSPAV 14:23 → OBSVTOIN 04-26 09:44 → M PCU 04-26 15:48
PROVIDERS: ADMIT General Practice; ATTEND General Practice
PROC: 30233N1 Transfusion of Nonautologous Red Blood Cells into Peripheral Vein, Percutaneous Approach (ICD-10-PCS; principal; 2025-04-28)
PROC: 06HM33Z Insertion of Infusion Device into Right Femoral Vein, Percutaneous Approach (ICD-10-PCS; 2025-04-28)
DX: M17.12 Unilateral primary osteoarthritis, left knee (principal); G93.41 Metabolic encephalopathy; I48.21 Permanent atrial fibrillation; E87.1 Hypo-osmolality and hyponatremia; D62 Acute posthemorrhagic anemia; J98.11 Atelectasis; N17.9 Acute kidney failure, unspecified; D68.32 Hemorrhagic disorder due to extrinsic circulating anticoagulants; M25.562 Pain in left knee; J44.9 Chronic obstructive pulmonary disease, unspecified; M79.89 Other specified soft tissue disorders; E78.5 Hyperlipidemia, unspecified; E87.5 Hyperkalemia; M54.50 Low back pain, unspecified; I10 Essential (primary) hypertension; Z79.01 Long term (current) use of anticoagulants; R33.9 Retention of urine, unspecified; M79.81 Nontraumatic hematoma of soft tissue; T45.515A Adverse effect of anticoagulants, initial encounter; K59.00 Constipation, unspecified; E86.0 Dehydration; Z79.899 Other long term (current) drug therapy; F11.90 Opioid use, unspecified, uncomplicated; Z79.890 Hormone replacement therapy; M66.0 Rupture of popliteal cyst; D72.829 Elevated white blood cell count, unspecified

== ENCOUNTER → 2025-08-01 | Outpatient (CLI) | payer MEDICARE, MEDICAID ==
[~2025-08-01] MED LIST changes: +ACET-897 PO; +AMIO200T54 PO; +FERR325T3 PO; +LEVO50TA5 PO; +META28.32 PO; +MIRA3350 PO; +MORP-137 PO; +MORP15TA2 PO; +ROSU10TA90 PO; +SPIR1CAP INH; +TAMS-18 PO
== END ==
LOC: M WUC 15:01
PROVIDERS: ATTEND Family Medicine
DX: R05.9 Cough, unspecified (principal)

== ENCOUNTER → 2025-08-08 | Outpatient (REF) | payer MEDICARE, MEDICAID ==
[2025-08-08 13:34] LABS: CALCIUM LEVEL 8.8 MG/DL (8.3-10.6); CARBON DIOXIDE LEVEL 30.0 MMOL/L (20-31); CHLORIDE LEVEL 102.0 MMOL/L (98-107); CREATININE FOR GFR 0.78 MG/DL (0.55-1.30); GLOMERULAR FILTRATION RATE 74.4 (>32); POTASSIUM SERUM 4.3 MMOL/L (3.5-5.1); SODIUM LEVEL 139.0 MMOL/L (136-145)
== END ==
LOC: M LAB REF 11:48
PROVIDERS: ATTEND Family Medicine
DX: I10 Essential (primary) hypertension (principal)